=== PATIENT | female | born 1950 | race Caucasian/White ===

== ENCOUNTER → 2016-08-08 | Outpatient (CLI) | payer BC ==
[~2016-08-08] MED LIST: AMB10 PO; ASPI-391 PO; ATV5 PO; B-CO1TAB29 PO; DVN160125 PO; EFF50 PO; FLUO20CA35 PO; LORA-741 PO; PRLSR20 PO; VALS160T58 PO; ZOLP10TA6 PO; [UNRECOGNIZED DRUG - REMARK] PO
[2016-08-08 12:27] LABS: ALT/SGPT 31 U/L (12-78); AST/SGOT 19 U/L (15-37); BLOOD UREA NITROGEN 10 mg/dl (7-18); BUN/CREATININE RATIO 15.2 (10-20); CARBON DIOXIDE 29 mmol/L (21-32); CHLORIDE 102 mmol/L (98-107); CHOLESTEROL 185 mg/dl (0-200); CREATININE 0.67 mg/dl (0.60-1.20); GLUCOSE 128 mg/dl (70-99); POTASSIUM 3.5 mmol/L (3.5-5.1); SODIUM 141 mmol/L (136-145); TRIGLYCERIDES 169 mg/dl (0-150); VERY LOW DENSITY LIPOPROT CALC 34 mg/dl
[2016-08-08 12:29] LABS: ALB/GLOB RATIO 0.9 (0.9-2); ALKALINE PHOSPHATASE 63 U/L (45-117); CHOLESTEROL/HDL RATIO 3.6; ESTIMATED AVERAGE GLUCOSE 151 mg/dl; HA1C FLAG Normal (Normal); HDL CHOLESTEROL 52 mg/dl; LDL CHOLESTEROL CALCULATED 99 mg/dl
[2016-08-08 12:36] LABS: CALCIUM 9.4 mg/dl (8.5-10.1)
== END | disposition home or self-care (01) ==
LOC: C.LABBFT 07:59
PROVIDERS: ATTEND Physician Assistant Medical
DX: E11.9 Type 2 diabetes mellitus without complications (principal)

== ENCOUNTER → 2016-09-09 | Day surgery (SDC) | payer BC ==
[2016-08-30 07:32] VITALS: Ht 162.6 cm; Wt 86.4 kg
[~2016-09-09] VITALS: Ht 162.6 cm; Wt 86.4 kg
[~2016-09-09] MED LIST changes: +500ML BSSPLUS 0.5ML EPI1:1000 IRRIG ONE; +ACETAMINOPHEN 325 MG TAB PO PRN; +ATROPINE SULFATE 0.1 MG/ML 5ML SYR IV PRN; +ATROPINE SULFATE 1% OP OINT PER APPLICATION CHARGE ONE; +BSS FLUSH ONE; +BUPIVACAINE HCL 0.75% 10 ML AMP/VIAL ONE; +CEFAZOLIN SOD 1 GM VIAL ONE; +DEXAMETHASONE SOD INJ 4 MG/ML VIAL ONE; +ERYTHROMYCIN OP OINT 5 MG/GM 3.5 GM TUBE ONE; +EpHEDrine SULFATE INJ 50 MG/ML AMP IV PRN; +EpINEphrine INJ 1MG/ML AMP 1 MG/ML AMP ONE; +HYALURONIDASE HUMAN 150 UNIT/ML INJ ONE; +INDOCYANINE GREEN 25 MG/10 ML ONE; +LACTATED RINGER'S 1000ML 500 ML IV SCH; +LIDOCAINE HCL 2% 2 ML VIAL (20MG/ML) ONE; +LIDOCAINE MPF 4% INJ INJ ONE; +MIDAZOLAM HCL 1 MG/ML 2ML VIAL ONE; +NEOMYCIN/POLYMYX/DEXAMETH OP OINT PER APP CHARGE ONE; +OCUCOAT 1 ML SOLN IO ONE; +POVIDONE-IODINE OP SOLN (SURGERY CNTR CHARGING ONLY) ONE; +PROPARACAINE 0.5% OP SOLN PER DROP CHARGE OPL SCH; +PROPOFOL IV EMULSION 10 MG/ML 20 ML VIAL IV ONE; +TIMOLOL MALEATE 0.5% OP SOLN PER DROP CHARGE ONE; +TRIAMCINOLONE ACETONIDE OPHTH 40 MG/ML VIAL STERILE IO ONE
[2016-09-09] MEDS: PHENYLEPHRINE HCL 2.5% OP SOLN PER DROP CHARGE OPL SCH ×2 (07:33→07:38)
[2016-09-09] MEDS: TROPICAMIDE 1% OP SOLN PER DROP CHARGE OPL SCH ×2 (07:34→07:39)
--- NOTE | 2016-09-09 08:28 | History & Physical Bridge - [place] ---
H&P Re-Evaluation Bridge Note: Pt has a macular hole in the left eye and is here for vitrectomy left eye. I have examined the patient, reviewed the History & Physical and in the interval since the performance of the History & Physical I have noted the following changes of clinical significance: No changes noted
--- NOTE | 2016-09-09 09:52 | [facility] Operative Report ---
Operative Report Date of Service Sep 09, 2016. Operative Report PREOPERATIVE DIAGNOSIS: Macular hole, left eye. ICD10 CODE: H35.342 POSTOPERATIVE DIAGNOSIS: same and small retinal defect. PROCEDURE: 1. Pars plana vitrectomy, 23 gauge. 2. Membrane peeling of the internal limiting membrane. 3. Endolaser. 4. Fluid-air exchange. 5. Air-gas exchange w/ SF6 20%. All to the left eye. CPT CODE: 07880 SURGEON: Mervin Verdugo D.O. COMPLICATIONS: None. ESTIMATED BLOOD LOSS: None. SPECIMENS: None. ANESTHESIA: Retrobulbar block and MAC. INDICATIONS FOR PROCEDURE: The patient has a macular hole that is visually significant. Vitrectomy surgery is indicated to decrease risk of vision loss and potentially improve vision. CONSENT: The risks, benefits and alternatives were discussed with the patient including but not limited to decreased visual acuity, failure to achieve desired results, loss of the eye, infection, pain, glaucoma, lens changes, retinal tears, retinal detachment, the need for more procedures, drooping of the eyelid, blindness, and double vision. The patient is aware of risks and consents to the surgery. Consent is signed and on the chart. OPERATION AND FINDINGS: The patient was brought to the operating room where the patient was identified by name, date, and medical record number. The surgical site was confirmed with the informed written consent. The patient was sedated by the anesthesiology team after which a 50:50 mixture of 4% lidocaine and 0.75% bupivacaine with hyaluronidase was administered in a standard retrobulbar fashion. A total of 4 ml was administered without difficulty. The patient was then prepped and draped in the usual sterile manner for retinal surgery. A wire lid speculum was placed and an John 23-gauge trocar cannula system was employed. The inferior temporal trocar cannula was first placed in an angled fashion 3.75mm posterior to the surgical limbus and the infusion cannula was inserted into this cannula after which the intravitreal position was verified prior to turning the infusion on. Two more trocar cannulas were then inserted in an angled fashion, one in the superior temporal, and one in the superior nasal quadrant both 3.75mm posterior to the surgical limbus. A light pipe and vitrector were then introduced into the eye and the BIOM wide angle viewing system was brought into place. Standard core vitrectomy was performed and the vitreous was insured to be totally detached from the posterior pole with the aid of the vitrector. Next 0.05ml of indocyanine green was placed over the macular surface to stain the internal limiting membrane. This was washed from the eye after 10 seconds. At this point a flat contact lens was placed on the surface of the eye and a flex scraper and ILM forceps were then used to gently peel the internal limiting membrane surrounding the macular hole without difficulty. At this point scleral depression was performed for 360 degrees and a small retinal defect in the midperiphery at the 1 o'clock meridian was noted as well as two small retinal hemorrhages inferior midperiphery with no definite retinal tears. All these locations were treated with endolaser. No other retinal tears and no retinal detachments were noted. A soft tip cannula was used to perform a fluid-air exchange. Next, SF6 20% was injected in through the infusion cannula for a complete gas fill of the eye. The trocar cannulas were then removed and found to be air tight. The intraocular pressure was found to be within normal limits by palpation and subconjunctival injections of Kefzol and dexamethasone were administered inferiorly and superiorly. The wire lid speculum was removed. Erythromycin and atropine and timolol were applied to the surface of the eye. A light patch and shield were taped over the surface of the eye and the patient left the Operating Room in stable condition having tolerated the procedure well. DISPOSITION: A gas bracelet was placed on the patients wrist. The patient was instructed to maintain a face down position overnight. The patient is to call immediately if there are any problems overnight. I attest to the content of the Intraoperative Record and any orders documented therein. Any exceptions are noted below.
--- NOTE | 2016-09-09 09:54 | Discharge Instructions-SurgCtr ---
Discharge Instructions Date of Service Sep 09, 2016. Visit Reason for Visit: Left Eye Macular Hole Discharge Discharge Diagnosis / Problem: same Discharge Goals Goal(s): Improve function Activity Recommendations Activity Limitations: per Instructions/Follow-up section Anesthesia . Post Anesthesia Instructions: If you have had General Anesthesia or IV Sedation: * Do not drive today. * Resume driving when surgeon permits. * Do not make important decisions or sign legal documents today. * Call surgeon for: 1. Temperature elevations greater than 101 degrees F. 2. Uncontrollable pain. 3. Excessive bleeding. 4. Persistent nausea and vomiting. 5. Medication intolerance (nausea, vomiting or rash). * For nausea and vomiting use only clear liquids such as: tea, soda, bouillon until nausea subsides, then gradually increase diet as tolerated. * If you have any concerns or questions, call your surgeon's office. If physician is unavailable and it is an emergency, call 911 or go to the nearest emergency room. . Instructions / Follow-Up Instructions / Follow-Up * May take Tylenol if needed for discomfort. * Do NOT lay flat on back and position head as follows: face foward with chin down during daytime. sleep right side down or on stomach with head toward left. * Do NOT remove green bracelet until instructed to do so by your surgeon and follow these precautions: * No air travel * No travel above 2500 feet * No nitrous oxide (N2O). * Do NOT remove eye shield. * NO straining, heavy lifting (>15 pounds) or bending below waist. * Avoid getting water or soap directly into operative eye. * Do NOT rub eye. If you experience increasing eye pain not relieved by medication, please contact us immediately at [phone]. If you are unable to reach someone at the above number, call [phone] and ask to speak with the EYE DOCTOR TITLE I INSTRUCTIONAL ASSISTANT. Inform them that you are a Dr. Verdugo patient who had recent surgery. Diet Recommendations Home Diet: resume previous diet Procedures Procedures Performed: Left Eye 23 Gauge Vitrectomy, Endolaser, Membrane Peeling, SF6 Gas Insertion Pending Studies Studies pending at discharge: no Medical Emergencies . Who to Call and When: Medical Emergencies: If at any time you feel your situation is an emergency, please call 911 immediately. . Non-Emergent Contact Non-Emergency issues call your: Mop Handle Assembler . . "Provider Documentation" section prepared by Mervin Verdugo. .
[2016-09-09 09:56] VITALS: TEMP 36.4
--- NOTE | 2016-09-09 10:11 | Anesthesia Progress Nt - [facility] ---
Anesthesia Post Op Note Date & Time Sep 09, 2016 at 10:11 Vital Signs Pain Intensity: 0 Vital Signs Past 12 Hours Date Time Temp Pulse Resp B/P (MAP) Pulse Ox O2 Delivery O2 Flow Rate FiO2 09/09/16 09:56 36.4 75 18 154/83 (106) 98 Room Air 09/09/16 07:24 36.7 87 16 147/96 (113) 95 Room Air Notes Mental Status: alert / awake / arousable, participated in evaluation Pt Amnestic to Procedure: Yes Nausea / Vomiting: adequately controlled Pain: adequately controlled Airway Patency, RR, SpO2: stable & adequate BP & HR: stable & adequate Hydration State: stable & adequate Anesthetic Complications: no major complications apparent
[2016-09-09 10:23] VITALS: BP 156/86; PULSE 67; O2SAT 96
== END | disposition home or self-care (01) ==
LOC: X.SURG 07:04
PROVIDERS: ATTEND Ophthalmology
DX: H35.342 Macular cyst, hole, or pseudohole, left eye (principal); G47.33 Obstructive sleep apnea (adult) (pediatric); I10 Essential (primary) hypertension; F41.9 Anxiety disorder, unspecified; F32.9 Major depressive disorder, single episode, unspecified; E66.9 Obesity, unspecified; Z68.32 Body mass index [BMI] 32.0-32.9, adult; Z98.890 Other specified postprocedural states; Z82.3 Family history of stroke; Z83.3 Family history of diabetes mellitus

== ENCOUNTER → 2016-12-25 | Day surgery (SDC) | payer BC ==
[2016-12-09 13:15] VITALS: Ht 162.6 cm; Wt 86.4 kg
[~2016-12-25] VITALS: Ht 162.6 cm; Wt 86.4 kg
[~2016-12-25] MED LIST changes: +500ML BSS 0.3ML EPI 1:1000PF IRRIG ONE; -500ML BSSPLUS 0.5ML EPI1:1000 IRRIG ONE; -AMB10 PO; +AMVISC PLUS 0.8ML SYRINGE INT OCU ONE; -ATROPINE SULFATE 1% OP OINT PER APPLICATION CHARGE ONE; -ATV5 PO; +AcetaZOLAMIDE 250 MG TAB PO SCH; +BETAXOLOL HCL 0.25% OP SUSP PER DROP CHARGE OPL SCH; +BRIMONIDINE TART 0.2% OP SOLN PER DROP CHARGE ONE; -BUPIVACAINE HCL 0.75% 10 ML AMP/VIAL ONE; -CEFAZOLIN SOD 1 GM VIAL ONE; -DEXAMETHASONE SOD INJ 4 MG/ML VIAL ONE; -DVN160125 PO; -EFF50 PO; +ENDOCOAT 0.85ML SYRINGE INT OCU ONE; -ERYTHROMYCIN OP OINT 5 MG/GM 3.5 GM TUBE ONE; -HYALURONIDASE HUMAN 150 UNIT/ML INJ ONE; -INDOCYANINE GREEN 25 MG/10 ML ONE; +LIDOCAINE 4% OP SOLN DROP CHARGE ONE; +LIDOCAINE 4% OP SOLN DROP CHARGE OPL SCH; +LIDOCAINE HCL 1% MPF 2 ML VIAL ONE; -LIDOCAINE HCL 2% 2 ML VIAL (20MG/ML) ONE; -LIDOCAINE MPF 4% INJ INJ ONE; +MIX: 4ML BSS 1ML EPI 1:1000 PF INSTIL ONE; +MOXIFLOXACIN OPH SOLN PER DROP CHARGE ONE; -NEOMYCIN/POLYMYX/DEXAMETH OP OINT PER APP CHARGE ONE; -POVIDONE-IODINE OP SOLN (SURGERY CNTR CHARGING ONLY) ONE; +POVIDONE-IODINE OP SOLN 30 ML BTL ONE; -PROPOFOL IV EMULSION 10 MG/ML 20 ML VIAL IV ONE; -TIMOLOL MALEATE 0.5% OP SOLN PER DROP CHARGE ONE; +TOBRAMYCIN/DEXAMETHASONE OPH OINT PER APPLN CHARGE ONE; -TRIAMCINOLONE ACETONIDE OPHTH 40 MG/ML VIAL STERILE IO ONE
[2016-12-25] MEDS: PHENYLEPHRINE HCL 2.5% OP SOLN PER DROP CHARGE OPL SCH ×2 (10:28→10:33)
[2016-12-25] MEDS: TROPICAMIDE 1% OP SOLN PER DROP CHARGE OPL SCH ×2 (10:29→10:34)
[2016-12-25] MEDS: CYCLOPENTOLATE HCL 1% OP SOLN PER DROP CHARGE OPL SCH ×2 (10:30→10:35)
[2016-12-25] MEDS: MOXIFLOXACIN OPH SOLN PER DROP CHARGE OPL SCH ×2 (10:31→10:36)
--- NOTE | 2016-12-25 11:04 | History & Physical Bridge - [place] ---
H&P Re-Evaluation Bridge Note: I have examined the patient, reviewed the History & Physical and in the interval since the performance of the History & Physical I have noted the following changes of clinical significance: No changes noted
--- NOTE | 2016-12-25 11:48 | Discharge Instructions-SurgCtr ---
Discharge Instructions Date of Service Dec 25, 2016. Visit Reason for Visit: Cataract Left Eye Discharge Discharge Diagnosis / Problem: lens implant left eye Discharge Goals Goal(s): Improve function Activity Recommendations Activity Limitations: resume your previous activity Lifting Limitations: no more than 10 pounds Exercise/Sports Limitations: gradually increase as tolerated May Resume Sexual Activity: when tolerated Shower/Bathe: tomorrow Driving or Machine Use: resume 1 day after discharge Anesthesia . Post Anesthesia Instructions: If you have had General Anesthesia or IV Sedation: * Do not drive today. * Resume driving when surgeon permits. * Do not make important decisions or sign legal documents today. * Call surgeon for: 1. Temperature elevations greater than 101 degrees F. 2. Uncontrollable pain. 3. Excessive bleeding. 4. Persistent nausea and vomiting. 5. Medication intolerance (nausea, vomiting or rash). * For nausea and vomiting use only clear liquids such as: tea, soda, bouillon until nausea subsides, then gradually increase diet as tolerated. * If you have any concerns or questions, call your surgeon's office. If physician is unavailable and it is an emergency, call 911 or go to the nearest emergency room. . Instructions / Follow-Up Instructions / Follow-Up ACTIVITY RECOMMENDATIONS: * Light activities. * Mild irritation and blurred vision are common for the first few days. * You may walk outside, read, watch television. * Redness around the white part of the eye is common. MEDICATIONS: Resume previous medications unless instructed otherwise by your surgeon. * Take white Diamox (Acetazolamide) tablet at 2 pm today. Start all eye drops at 2 pm today: * Eye drops (today and tomorrow): Prednisone - one drop in operative eye every 3 hours while awake Ofloxacin - one drop in operative eye every 3 hours while awake SPECIAL CARE INSTRUCTIONS: * Tape plastic shield over eye to sleep at night. Call your doctor at with any concerns or problems. FOLLOW UP VISIT: Follow-up with Dr Tsang at [place] office as scheduled. Diet Recommendations Home Diet: no limitations Procedures Procedures Performed: cataract extraction with lens implant Pending Studies Studies pending at discharge: no Medical Emergencies . Who to Call and When: Medical Emergencies: If at any time you feel your situation is an emergency, please call 911 immediately. . Non-Emergent Contact Non-Emergency issues call your: V/[employer] Landing Signal Officer Call Non-Emergent contact if: your pain is not controlled [phone] . . "Provider Documentation" section prepared by Suraj Tsang. .
--- NOTE | 2016-12-25 11:50 | [facility] Operative Report ---
Operative Report Date of Service Dec 25, 2016. Operative Report 1. PREOPERATIVE DIAGNOSIS: Senile nuclear cataract, left eye. 2. POSTOPERATIVE DIAGNOSIS: Senile nuclear cataract, left eye. 3. PROCEDURE: Phacoemulsification of left cataract with posterior chamber lens implant, type [employer], model MX60, power +23.0 diopters. ANESTHESIA: Local standby. SURGEON: Dr. Tsang. COMPLICATIONS: None. OPERATING TIME: 10 minutes. 4. OPERATION AND FINDINGS: DESCRIPTION OF PROCEDURE: The left pupil was dilated. The anesthetic was administered using a topical technique. The left eye was prepped and draped. A speculum was placed. A clear corneal incision was formed. The chamber was filled with Amvisc Plus and Endocoat. Epinephrine solution was used. A paracentesis was placed. A capsulorrhexis was performed. The nucleus was hydrodissected. The lens was removed with phacoemulsification. Time was 4.47 seconds. The aspiration unit was used to remove the cortex. The capsule was filled with Amvisc Plus. The lens implant was folded and placed into the capsule. The incision was hydrated. The Amvisc was aspirated. The wound was secure. The chamber was deep. The pupil was round. Brimonidine, TobraDex ointment and Vigamox solution were placed. The speculum was removed. The patient was returned to the Recovery Room in stable condition. I attest to the content of the Intraoperative Record and any orders documented therein. Any exceptions are noted below. The scribe's documentation has been prepared in my presence, under my direction and personally reviewed by me in its entirety. I confirm that the note above accurately reflects all work, treatment, procedures, and medical decision making performed by me. I personally scribed for Suraj Tsang M.D. ([email or web address]) on 12/25/16 at 11:50. Electronically submitted by Sindhu Ward ([email or web address]).
--- NOTE | 2016-12-25 12:03 | Anesthesia Progress Nt - [facility] ---
Anesthesia Post Op Note Date & Time Dec 25, 2016 at 12:03 Vital Signs Pain Intensity: 0 Vital Signs Past 12 Hours Date Time Temp Pulse Resp B/P (MAP) Pulse Ox O2 Delivery O2 Flow Rate FiO2 12/25/16 11:53 36.8 70 14 132/79 (96) 97 Room Air 12/25/16 10:20 36.6 84 18 146/85 (105) 95 Room Air Notes Mental Status: alert / awake / arousable, participated in evaluation Pt Amnestic to Procedure: Yes Nausea / Vomiting: adequately controlled Pain: adequately controlled Airway Patency, RR, SpO2: stable & adequate BP & HR: stable & adequate Hydration State: stable & adequate Anesthetic Complications: no major complications apparent
[2016-12-25 12:16] VITALS: BP 139/81; PULSE 74; O2SAT 95
== END | disposition home or self-care (01) ==
LOC: X.SURG 09:58
PROVIDERS: ATTEND Specialist
DX: H25.12 Age-related nuclear cataract, left eye (principal); I10 Essential (primary) hypertension; E66.9 Obesity, unspecified; G47.33 Obstructive sleep apnea (adult) (pediatric); Z98.890 Other specified postprocedural states; Z68.32 Body mass index [BMI] 32.0-32.9, adult

== ENCOUNTER → 2017-02-18 | Outpatient (CLI) | payer BC ==
[~2017-02-18] MED LIST changes: -500ML BSS 0.3ML EPI 1:1000PF IRRIG ONE; -ACETAMINOPHEN 325 MG TAB PO PRN; -AMVISC PLUS 0.8ML SYRINGE INT OCU ONE; -ATROPINE SULFATE 0.1 MG/ML 5ML SYR IV PRN; -AcetaZOLAMIDE 250 MG TAB PO SCH; -BETAXOLOL HCL 0.25% OP SUSP PER DROP CHARGE OPL SCH; -BRIMONIDINE TART 0.2% OP SOLN PER DROP CHARGE ONE; -BSS FLUSH ONE; -ENDOCOAT 0.85ML SYRINGE INT OCU ONE; -EpHEDrine SULFATE INJ 50 MG/ML AMP IV PRN; -EpINEphrine INJ 1MG/ML AMP 1 MG/ML AMP ONE; -LACTATED RINGER'S 1000ML 500 ML IV SCH; -LIDOCAINE 4% OP SOLN DROP CHARGE ONE; -LIDOCAINE 4% OP SOLN DROP CHARGE OPL SCH; -LIDOCAINE HCL 1% MPF 2 ML VIAL ONE; -MIDAZOLAM HCL 1 MG/ML 2ML VIAL ONE; -MIX: 4ML BSS 1ML EPI 1:1000 PF INSTIL ONE; -MOXIFLOXACIN OPH SOLN PER DROP CHARGE ONE; -OCUCOAT 1 ML SOLN IO ONE; -POVIDONE-IODINE OP SOLN 30 ML BTL ONE; -PROPARACAINE 0.5% OP SOLN PER DROP CHARGE OPL SCH; -TOBRAMYCIN/DEXAMETHASONE OPH OINT PER APPLN CHARGE ONE
[2017-02-18 12:18] LABS: HEMATOCRIT 40.3 % (37-47); MEAN CELL VOLUME 89.2 fL (80-100); MEAN CORPUSCULAR HEMOGLOBIN 28.3 pg (25-34); MEAN CORPUSCULAR HGB CONC 31.8 g/dl (32-36); MEAN PLATELET VOLUME 9.7 fL (7.4-10.4); PLATELET COUNT 287 K/uL (130-400); RED BLOOD COUNT 4.52 M/uL (4.2-5.4); WHITE BLOOD COUNT 8.93 K/uL (4.8-10.8)
[2017-02-18 12:29] LABS: ESTIMATED AVERAGE GLUCOSE 151 mg/dl; HA1C FLAG Normal (Normal)
[2017-02-18 12:36] LABS: ALT/SGPT 25 U/L (12-78); BLOOD UREA NITROGEN 18 mg/dl (7-18); BUN/CREATININE RATIO 24.2 (10-20); CALCIUM 9.2 mg/dl (8.5-10.1); CARBON DIOXIDE 26 mmol/L (21-32); CHLORIDE 100 mmol/L (98-107); CHOLESTEROL 162 mg/dl (0-200); CREATININE 0.75 mg/dl (0.60-1.20); GLUCOSE 136 mg/dl (70-99); POTASSIUM 3.7 mmol/L (3.5-5.1); SODIUM 136 mmol/L (136-145); TRIGLYCERIDES 121 mg/dl (0-150); VERY LOW DENSITY LIPOPROT CALC 24 mg/dl
[2017-02-18 12:41] LABS: RATIO 11.6 mcg/mg (0-30.0)
[2017-02-18 12:46] LABS: ALB/GLOB RATIO 0.9 (0.9-2); ALKALINE PHOSPHATASE 68 U/L (45-117); AST/SGOT 11 U/L (15-37); CHOLESTEROL/HDL RATIO 3.2; HDL CHOLESTEROL 50 mg/dl; LDL CHOLESTEROL CALCULATED 88 mg/dl
== END | disposition home or self-care (01) ==
LOC: C.LABBFT 07:27
PROVIDERS: ATTEND Internal Medicine
DX: E11.9 Type 2 diabetes mellitus without complications (principal)

== ENCOUNTER → 2017-02-28 | Outpatient (CLI) | payer BC ==
--- NOTE | 2017-02-28 15:33 | MAMMOGRAPHY REPORT ---
BILATERAL DIGITAL SCREENING MAMMOGRAM WITH CAD: 02/28/2017 CLINICAL HISTORY: Routine screening. TECHNIQUE: Current study was also evaluated with a Computer Aided Detection (CAD) system. Bilateral CC and MLO views were obtained. COMPARISON: Comparison is made to exams dated: 11/19/2013 mammogram, 09/21/2012 mammogram, 08/20/2011 m ammogram, 06/15/2010 mammogram, 06/14/2009 mammogram - [facility], and 09/16/2007. BREAST COMPOSITION: There are scattered areas of fibroglandular density in both breasts. FINDINGS: No suspicious masses, calcifications, or areas of architectural distortion are noted in ei ther breast. There has been no significant interval change compared to prior exams. Scattered bilater al benign-appearing calcifications are not significantly changed. IMPRESSION: ACR BI-RADS CATEGORY 2: BENIGN There is no mammographic evidence of malignancy. A 1 year screening mammogram is recommended. The pa tient will receive written notification of the results. Approximately 10% of breast cancers are not detected with mammography. A negative mammographic report should not delay biopsy if a clinically suggestive mass is present. Khloe Covington M.D. /:02/28/2017 07:28:42 Ship Boat Or Barge Mate: Zoya JONES(Rubi)(M), [facility] letter sent: Normal 1/2 BI-RADS Code: ACR BI-RADS Category 2: Benign
== END | disposition home or self-care (01) ==
LOC: C.MAMM 06:47
PROVIDERS: ATTEND Internal Medicine
DX: Z12.31 Encounter for screening mammogram for malignant neoplasm of breast (principal)

== ENCOUNTER 2023-02-01 07:08 | Inpatient (IN) ==
[2023-02-01 08:09] LABS: Basophils # (auto) 0.06 K/uL (0.00-0.20); Basophils % (auto) 0.5 %; Eosinophils # (auto) 0.22 K/uL (0.00-0.50); Eosinophils % (auto) 1.8 %; Hematocrit (blood only) 44.4 % (37.0-47.0); Hemoglobin 14.1 g/dl (12.0-16.0); Immature Granulocytes # (auto) 0.06 K/uL (0.01-0.20); Immature Granulocytes % (auto) 0.5 %; Lymphocytes # (auto) 2.89 K/uL (1.20-3.40); Lymphocytes % (auto) 23.4 %; Mean Corpuscular Hgb Conc 31.8 g/dL (32.0-36.0); Mean Corpuscular Volume 94.5 fL (80.0-100.0); Mean Platelet Volume 9.9 fL (9.4-12.4); Monocytes # (auto) 0.49 K/uL (0.11-0.59); Neutrophils # (auto) 8.63 K/uL (1.40-6.50); Neutrophils % (auto) 69.8 %; Platelet Count 355 K/uL (130-400); RDW Coefficient of Variation 14.4 % (11.5-14.5); RDW Standard Deviation 49.2 fL (36.4-46.3); White Blood Count 12.35 K/ul (4.8-10.8)
--- NOTE | 2023-02-01 08:13 | Emergency Department Note ---
History of Present Illness General Chief complaint: Flu Like Symptoms Stated complaint: SOB,COUGH,HARD TO BREATHE Time Seen by Provider: 02/01/23 07:18 History of Present Illness This 72-year-old female is seen today for evaluation of cough and shortness of breath that have been present for 2 days. She states 3 days ago she felt fine. She had some minor cold type symptoms including clear rhinorrhea, but did not think much of them. She had no shortness of breath at that time. She visited with her granddaughter over the break. She states her granddaughter was sick. The patient has had increasing shortness of breath in the last 48 hours. She denies any fevers, but has had sweats. She also has chills. No nausea, vomiting, or diarrhea. She denies any ear pain, headache, neck pain, or sinus congestion. She denies any UTI symptoms. She denies any history of CHF or COPD. However, she does state that she uses a BiPAP machine at night. She does have a history of hypertension. She did not take her medications this morning. Currently denies any chest pain. She does not smoke. She states her vaccinations are up-to-date, including COVID. She has had no treatment. Upon initial presentation, oxygen saturation was 88% on room air. Home Medications Medication Instructions Recorded Confirmed Type vitamin B complex (B 1 tab PO DAILY 10/07/18 02/01/23 History Complex-Vitamin B12 tablet) blood sugar diagnostic (Accu-Chek #100 ea 08/06/19 10/14/22 Rx Marleni Plus test strips) lancing device with lancets kit #100 ea 08/06/19 10/14/22 Rx (Accu-Chek Softclix Lancing Device+Lancets kit) desoximetasone 0.25 % topical 1 appln topical BID #60 grams 09/13/19 02/01/23 Rx ointment ferrous sulfate 325 mg (65 mg 325 mg PO DAILY 03/22/20 02/01/23 History iron) tablet (Feosol) multivitamin 1 tab PO DAILY 03/22/20 02/01/23 History ondansetron 4 mg disintegrating 4 mg PO Q6 PRN nausea and vomiting 05/26/21 02/01/23 Rx tablet #14 tabs venlafaxine 75 mg capsule,extended 75 mg PO DAILY #90 caps 04/02/22 02/01/23 Rx release 24 hr bupropion HCl 300 mg 24 hr tablet, 300 mg PO QAM 90 days #90 tabs 10/03/22 02/01/23 Rx extended release (Wellbutrin XL) metformin 500 mg tablet 500 mg PO TIDWMEAL #270 tabs 10/17/22 02/01/23 Rx zolpidem 10 mg tablet (Ambien) 10 mg PO QPM PRN insomnia #90 tabs 10/17/22 02/01/23 Rx mometasone 0.1 % topical cream 1 applic topical DAILY #45 grams 11/14/22 02/01/23 Rx potassium chloride 10 mEq 20 meq (2 x 10 mEq) PO DAILY #180 11/14/22 02/01/23 Rx tablet,extended release(part/cryst) tabs omeprazole 40 mg capsule,delayed 40 mg PO DAILY #90 caps 11/18/22 02/01/23 Rx release venlafaxine 150 mg 150 mg PO DAILY #90 caps 12/02/22 02/01/23 Rx capsule,extended release 24 hr benzonatate 100 mg capsule 100 mg PO TID PRN cough #30 caps 12/19/22 02/01/23 Rx sodium sul 1.479 gram-potas ch See Rx Instructions PO .COMPLEX 01/24/23 02/01/23 Rx 0.188 gram-magnes sul 0.225 gram #24 tabs tablet (Sutab) carvedilol 3.125 mg tablet 3.125 mg PO BIDM #60 tabs 02/04/23 Rx empagliflozin 10 mg tablet 10 mg PO DAILY #30 tabs 02/04/23 Rx (Jardiance) furosemide 40 mg tablet (Lasix) 40 mg PO DAILY #30 tabs 02/04/23 Rx sacubitril 24 mg-valsartan 26 mg 1 tab PO BID #60 tabs 02/04/23 Rx tablet (Entresto) Allergies Allergy/AdvReac Type Severity Reaction Status Date / Time latex Allergy Mild RASH Verified 02/03/23 11:17 dextromethorphan Allergy Unknown Unknown Verified 02/03/23 11:17 [From NyQuil] doxylamine [From NyQuil] Allergy Unknown Unknown Verified 02/03/23 11:17 pseudoephedrine [From NyQuil] Allergy Unknown Unknown Verified 02/03/23 11:17 bacitracin AdvReac Mild "change in Verified 02/03/23 11:17 skin color, itch" neomycin AdvReac Mild "change in Verified 02/03/23 11:17 skin color, itch" polymyxin B AdvReac Mild "change in Verified 02/03/23 11:17 skin color, itch" acetaminophen AdvReac Unknown COUGH/ANXIO Verified 02/03/23 11:17 US diphenhydramine AdvReac Unknown COUGH/ANXIO Verified 02/03/23 11:17 US ibuprofen AdvReac Unknown COUGH/ANXIO Verified 02/03/23 11:17 US naproxen AdvReac Unknown COUGH/ANXIO Verified 02/03/23 11:17 US crestor AdvReac myalgia Uncoded 12/29/22 18:22 Past Med/Surg History Medical History (Updated 02/04/23 @ 21:35 by Earl Morris PA-C) Community acquired pneumonia Type 2 diabetes mellitus Sleep apnea Insomnia Hypertension Esophageal reflux Hemorrhoids Eczema Atopic dermatitis Anxiety Surgical History S/P colonoscopy (03/06/11) Sigmoid diverticulosis, otherwise normal. Recheck 10 years Family History Father Asthma Diabetes Hepatic disorder Sister Carotid artery stenosis Diabetes Mother Stroke Diabetes Brother Diabetes Denies family history of Ovarian cancer Prostate cancer Myocardial infarction Breast cancer Colorectal cancer Social History Smoking Status: Never smoker Second Hand Exposure: No; Do You Dip or Chew Tobacco: No; Hx Alcohol Use: No Hx Substance Use: No Preferred Language: Estonian Communication Ability: Effective Visual Impairment: No Limitations Hearing Ability: Normal Project Analyst Required: No Beliefs That Will Affect Care: None marital status: Current Living Situation: Spouse current occupational status: employed current occupation: Homemaker Feels Safe at Home: Yes Diet: regular caffeine: Yes (Not often ) Dental Care, Regularly: Yes Seatbelt Use: always Sunscreen Use: No Assistive Devices: None Review of Systems A total of 10 systems reviewed and were otherwise negative Physical Exam Vital Signs Vital Signs - 24 hr 02/01/23 07:12 02/01/23 07:30 Temperature 36.8 C Temperature Source Temporal Artery Scan Pulse Rate 128 H Pulse Rate [Apical] 126 H Respiratory Rate 20 18 Respiratory Effort / Characteristics Non-Labored Labored Respiratory Depth Normal Respiratory Pattern Regular Blood Pressure 160/81 H Blood Pressure [Right Arm] 187/100 H Blood Pressure Mean 107 Blood Pressure Mean [Right Arm] 129 Pulse Oximetry 90 98 Oxygen Delivery Method Room Air Nasal Cannula Oxygen Flow Rate 3 Sepsis Recent Fever Within 48 Hours No Sepsis New/Unexplained Change in Mental Status No Sepsis Action Taken by Nursing No Action Required General: Well-developed, well-nourished, elderly female, in no acute distress. Obvious respiratory discomfort. Laying on the bed. Alert and oriented. Currently wearing oxygen tubing. Skin: Warm and moist with good turgor. No rashes. No ecchymosis or erythema. She is diaphoretic. No visible joint effusions. HEENT: Normocephalic, atraumatic. Eyes PERRLA, EOMI. Ears TMs intact bilaterally with good light reflexes. No erythema or bulging. Canals are patent. Nares patent bilaterally with clear nasal drainage. Oropharynx without erythema or exudate. No uvula midline. Oral mucosa moist. Fair dentition. Lymphatics are palpated without enlargement or tenderness for anterior and posterior chains. Heart: Heart tachycardic with a regular rhythm. No MGR. Peripheral pulses are 2+. Lungs: Tachypneic. Lungs have expiratory rhonchi present in both lower bautista. No crackles or wheezing. Fair air movement. The patient is able to take a deep breath. Abdomen: Abdomen was inspected, auscultated, and palpated. Obese. Bowel sounds present x 4. Soft, nontender to palpation. No hepato-splenomegaly. No masses noted. No rebound. No CVA tenderness. Musculoskeletal: Gross motor function of the upper and lower extremities is intact and unremarkable. Neurologic: Gross sensation is intact across the upper and lower extremities by soft touch. Course Administered Medications Discontinued Medications Bupropion HCl (Bupropion Xl 300 Mg Tabcr) 300 [facility] [place] Stop: 03/04/23 08:59 Last Admin: 02/04/23 08:48 Dose: 300 mg Documented By: Admin: 02/03/23 08:30 Dose: 300 mg Documented By: Admin: 02/02/23 08:40 Dose: 300 mg Documented By: NAYELI Carvedilol (Carvedilol 3.125 Mg Tab) 3.125 mg PO BIDM NATALIO Stop: 03/05/23 16:59 Last Admin: 02/04/23 08:48 Dose: 3.125 mg Documented By: Admin: 02/03/23 17:23 Dose: 3.125 mg Documented By: MADALYN Empagliflozin (Empagliflozin 10 Mg Tab) 10 mg PO DAILY NATALIO Stop: 03/05/23 16:29 Last Admin: 02/04/23 08:49 Dose: 10 mg Documented By: Admin: 02/03/23 17:23 Dose: 10 mg Documented By: MADALYN Fentanyl Citrate (Fentanyl Citrate Pf 100 Mcg/2 Ml Vial) Confirm Administered Dose 100 mcg .ROUTE .STK-MED ONE Stop: 02/03/23 11:19 Last Increment: 02/03/23 12:16 Dose: 50 mcg Documented By: AMI Ferrous Sulfate (Ferrous Sulfate 325 Mg Tab) 325 mg PO DAILY NATALIO Stop: 03/04/23 08:59 Last Admin: 02/04/23 08:49 Dose: 325 mg Documented By: Admin: 02/03/23 08:30 Dose: 325 mg Documented By: Admin: 02/02/23 08:40 Dose: 325 mg Documented By: NAYELI Furosemide (Furosemide Inj 20 Mg/2 Ml Vial) 20 mg IV ONE ONE Stop: 02/01/23 10:12 Last Admin: 02/01/23 10:23 Dose: 20 mg Documented By: ERIC Furosemide (Furosemide 40 Mg/4 Ml Vial) 40 mg IV BID17 NATALIO Stop: 03/03/23 16:59 Last Admin: 02/03/23 17:23 Dose: 40 mg Documented By: Admin: 02/03/23 08:29 Dose: 40 mg Documented By: Admin: 02/02/23 16:34 Dose: 40 mg Documented By: Admin: 02/02/23 08:40 Dose: 40 mg Documented By: Admin: 02/01/23 17:39 Dose: 40 mg Documented By: TAMMY Furosemide (Furosemide 40 Mg/4 Ml Vial) 40 mg IV Q12H NATALIO Stop: 03/06/23 08:59 Last Admin: 02/04/23 09:02 Dose: 40 mg Documented By: MADALYN Heparin Sodium (Porcine) (Heparin Sod 5,000 Unit/0.5 Ml Vial) 5,000 units SQ Q12 NATALIO Stop: 03/03/23 20:59 Last Admin: 02/04/23 08:49 Dose: 5,000 units Documented By: Admin: 02/03/23 21:11 Dose: 5,000 units Documented By: Admin: 02/03/23 13:40 Dose: 5,000 units Documented By: Admin: 02/02/23 21:12 Dose: 5,000 units Documented By: Admin: 02/02/23 08:34 Dose: 5,000 units Documented By: Admin: 02/01/23 20:55 Dose: 5,000 units Documented By: PALOMO Heparin Sodium (Porcine) (Heparin (Porcine) 1000 Unit/Ml 10 Ml (Maintainer Plant Use Only)) Confirm Administered Dose 10,000 units .ROUTE .STK-MED ONE Stop: 02/03/23 11:19 Last Admin: 02/03/23 12:15 Dose: 5,000 units Documented By: KIM Heparin Sodium/Sodium Chloride (Heparin In Nss Infusion 1000 Unit/500 Ml (2 U/Ml) Bag) Confirm Administered Dose 3,000 units IV .STK-MED ONE Stop: 02/03/23 11:19 Last Admin: 02/03/23 11:46 Dose: 3,000 units Documented By: KIM Famotidine 20 mg/ Syringe 5 mls @ 2.5 mls/min IV NOW STA Stop: 02/01/23 11:34 Last Admin: 02/01/23 14:46 Dose: 2.5 mls/min Documented By: TAMMY Famotidine 20 mg/ Syringe 5 mls @ 2.5 mls/min IV QAM NATALIO Stop: 03/04/23 08:59 Last Admin: 02/04/23 09:01 Dose: 2.5 mls/min Documented By: Admin: 02/03/23 08:34 Dose: 2.5 mls/min Documented By: Admin: 02/02/23 08:39 Dose: 2.5 mls/min Documented By: NAYELI Magnesium Sulfate/Dextrose (Magnesium Sulfate / D5w) 1 gm in 100 mls @ 50 mls/hr IV Q2H NATALIO Stop: 02/01/23 21:14 Last Infusion: 02/01/23 22:30 Dose: Infused Documented By: Admin: 02/01/23 20:20 Dose: 50 mls/hr Documented By: Infusion: 02/01/23 19:58 Dose: Infused Documented By: Admin: 02/01/23 17:58 Dose: 50 mls/hr Documented By: Infusion: 02/01/23 17:58 Dose: Infused Documented By: Admin: 02/01/23 16:16 Dose: 50 mls/hr Documented By: TAMMY Sodium Chloride (Nss) 250 mls @ 999 mls/hr IV .Q16M ONE Stop: 02/03/23 19:29 Last Infusion: 02/03/23 22:05 Dose: Infused Documented By: Admin: 02/03/23 21:45 Dose: 999 mls/hr Documented By: PALOMO Insulin Aspart (Insulin Aspart Per Unit Charge) 6 units SC NOW STA Stop: 02/01/23 11:24 Last Admin: 02/01/23 11:41 Dose: 6 units Documented By: TARI Co-signed By: VIRGILIO Insulin Aspart (Insulin Aspart Per Unit Charge) 0 units SC ACHS NATALIO; Protocol Stop: 03/03/23 13:14 Last Admin: 02/04/23 12:46 Dose: 4 units Documented By: MADALYN Co-signed By: YOLANDA Admin: 02/04/23 08:45 Dose: 6 units Documented By: MADALYN Co-signed By: JAMES Admin: 02/03/23 21:12 Dose: Not Given Documented By: Admin: 02/03/23 17:29 Dose: 9 units Documented By: MADALYN Co-signed By: TEOFILO Admin: 02/03/23 13:44 Dose: 7 units Documented By: MADALYN Co-signed By: TEOFILO Admin: 02/03/23 08:25 Dose: 1 units Documented By: MADALYN Co-signed By: VALERIE Admin: 02/02/23 21:15 Dose: Not Given Documented By: Admin: 02/02/23 17:23 Dose: 5 units Documented By: NAYELI Co-signed By: JAMES Admin: 02/02/23 12:25 Dose: 9 units Documented By: NAYELI Co-signed By: JAMES Admin: 02/02/23 08:33 Dose: 6 units Documented By: NAYELI Co-signed By: EMILY Admin: 02/01/23 20:54 Dose: Not Given Documented By: Admin: 02/01/23 17:38 Dose: Not Given Documented By: Admin: 02/01/23 14:55 Dose: 5 units Documented By: TAMMY Co-signed By: JAMES Insulin Glargine (Lantus Per Unit Charge) 20 units SQ ONE ONE; Protocol Stop: 02/01/23 13:46 Last Admin: 02/01/23 14:56 Dose: 20 units Documented By: TAMMY Co-signed By: JAMES Insulin Glargine (Lantus Per Unit Charge) 15 units SQ DAILY NATALIO; Protocol Stop: 03/04/23 08:59 Last Admin: 02/02/23 08:34 Dose: 15 units Documented By: NAYELI Co-signed By: EMILY Insulin Glargine (Lantus Per Unit Charge) 7 units SQ DAILY NATALIO; Protocol Stop: 03/05/23 08:59 Last Admin: 02/03/23 08:26 Dose: 7 units Documented By: MADALYN Co-signed By: VALERIE Insulin Glargine (Lantus Per Unit Charge) 17 units SQ DAILY NATALIO; Protocol Stop: 03/06/23 08:59 Last Admin: 02/04/23 08:45 Dose: 17 units Documented By: MADALYN Co-signed By: JAMES Insulin Glargine (Lantus Per Unit Charge) 10 units SQ QDD NATALIO; Protocol Stop: 02/03/23 16:31 Last Admin: 02/03/23 17:29 Dose: 10 units Documented By: MADALYN Co-signed By: TEOFILO Ioversol (Optiray 320 125ml) 115 ml IV ONCE ONE Stop: 02/01/23 09:22 Last Admin: 02/01/23 09:22 Dose: 115 ml Documented By: SUBHA Ioversol (Optiray 350) Confirm Administered Dose 1 ml .ROUTE .STK-MED ONE Stop: 02/03/23 11:49 Last Admin: 02/03/23 12:14 Dose: 25 ml Documented By: KIM Losartan Potassium (Losartan Potassium 50 Mg Tab) 100 mg PO NOW STA Stop: 02/01/23 11:35 Last Admin: 02/01/23 14:47 Dose: 100 mg Documented By: TAMMY Losartan Potassium (Losartan Potassium 50 Mg Tab) 100 mg PO DAILY NATALIO Stop: 03/04/23 08:59 Last Admin: 02/03/23 08:30 Dose: 100 mg Documented By: Admin: 02/02/23 08:39 Dose: 100 mg Documented By: NAYELI Midazolam HCl (Midazolam Hcl 1 Mg/Ml 2ml Vial) Confirm Administered Dose 2 mg .ROUTE .STK-MED ONE Stop: 02/03/23 11:19 Last Admin: 02/03/23 12:15 Dose: 2 mg Documented By: AMI Mometasone Furoate (Mometasone Furoate 0.1% Cr 15 Gm Tube) 1 appln EXT DAILY NATALIO Stop: 03/04/23 08:59 Last Admin: 02/04/23 08:51 Dose: 1 appln Documented By: Admin: 02/03/23 08:32 Dose: 1 appln Documented By: Admin: 02/02/23 08:37 Dose: 1 appln Documented By: NAYELI Nicardipine HCl (Nicardipine Hcl Inj 2.5 Mg/Ml 10 Ml Amp) Confirm Administered Dose 25 mg .ROUTE .STK-MED ONE Stop: 02/03/23 11:19 Last Admin: 02/03/23 11:46 Dose: 25 mg Documented By: KIM Nitroglycerin (Nitroglycerin 2% Ointment 30gm Tube) Confirm Administered Dose 18 inch EXT .STK-MED ONE Stop: 02/01/23 10:00 Last Admin: 02/01/23 10:01 Dose: 1 inch Documented By: ML Nitroglycerin/Dextrose (Nitroglycerin/D5w 100mcg/Ml 20ml Syr) Confirm Administered Dose 2,000 mcg .ROUTE .STK-MED ONE Stop: 02/03/23 11:19 Last Admin: 02/03/23 11:47 Dose: 2,000 mcg Documented By: KIM Pantoprazole Sodium (Pantoprazole 40 Mg Tab) 40 mg PO DAILY NATALIO Stop: 03/04/23 08:59 Last Admin: 02/04/23 08:50 Dose: 40 mg Documented By: Admin: 02/03/23 08:31 Dose: 40 mg Documented By: Admin: 02/02/23 08:39 Dose: 40 mg Documented By: NAYELI Potassium Chloride (Potassium Chloride Crtab 20 Meq Tabcr) 20 meq PO NOW STA Stop: 02/01/23 11:35 Last Admin: 02/01/23 14:48 Dose: 20 meq Documented By: TAMMY Potassium Chloride (Potassium Chloride Crtab 20 Meq Tabcr) 20 meq PO BID NATALIO Stop: 03/03/23 20:59 Last Admin: 02/04/23 08:51 Dose: 20 meq Documented By: Admin: 02/03/23 21:13 Dose: 20 meq Documented By: Admin: 02/03/23 13:39 Dose: 20 meq Documented By: Admin: 02/02/23 21:09 Dose: 20 meq Documented By: Admin: 02/02/23 08:40 Dose: 20 meq Documented By: Admin: 02/01/23 20:55 Dose: 20 meq Documented By: PALOMO Sacubitril/Valsartan (Valsartan/Sacubitril 26/24mg Tab) 1 tab PO BID NATALIO Stop: 03/05/23 20:59 Last Admin: 02/04/23 08:51 Dose: 1 tab Documented By: Admin: 02/03/23 21:13 Dose: 1 tab Documented By: PALOMO Venlafaxine HCl (Venlafaxine Hcl Xr 150 Mg Capxr) 150 mg PO NOW STA Stop: 02/01/23 11:35 Last Admin: 02/01/23 14:49 Dose: 150 mg Documented By: TAMMY Venlafaxine HCl (Venlafaxine Hcl Xr 75 Mg Capxr) 75 mg PO NOW STA Stop: 02/01/23 11:35 Last Admin: 02/01/23 14:49 Dose: 75 mg Documented By: TAMMY Venlafaxine HCl (Venlafaxine Hcl Xr 150 Mg Capxr) 150 mg PO DAILY NATALIO Stop: 03/04/23 08:59 Last Admin: 02/04/23 08:50 Dose: 150 mg Documented By: Admin: 02/03/23 08:31 Dose: 150 mg Documented By: Admin: 02/02/23 08:40 Dose: 150 mg Documented By: NAYELI Venlafaxine HCl (Venlafaxine Hcl Xr 75 Mg Capxr) 75 mg PO DAILY NATALIO Stop: 03/04/23 08:59 Last Admin: 02/04/23 08:52 Dose: 75 mg Documented By: Admin: 02/03/23 08:31 Dose: 75 mg Documented By: Admin: 02/02/23 08:40 Dose: 75 mg Documented By: NAYELI Zolpidem Tartrate (Zolpidem Tartrate 10 Mg Tab) 10 mg PO HS PRN PRN Reason: insomnia Stop: 03/03/23 20:50 Last Admin: 02/04/23 01:00 Dose: 10 mg Documented By: Admin: 02/02/23 21:11 Dose: 10 mg Documented By: Admin: 02/01/23 21:23 Dose: 10 mg Documented By: PALOMO Critical Care Time Critical Care Time: Yes Total Critical Care Time: 35 I have personally spent greater than 35 minutes of critical care time in the direct management of this patient. This includes bedside care, interpretation of diagnostic studies and testing, discussion with consultants, patient, and family members, and other required patient management activities. This 35 minutes is in excess of all separately billable procedures. Medical Decision Making Differential Diagnosis Pneumonia, PE, COPD exacerbation, CHF, asthma exacerbation, pneumonitis, pneumothorax Medical Records Attestation: I reviewed the patient's medical records. Home Medications Current Medication List: was personally reviewed by me Additional Comments: She had an previous echocardiogram performed and showed an ejection fraction of 50 to 55% and mild mitral regurgitation. Laboratory Data CBC obtained today shows a mild elevation white count of 12.35. Normal H&H at 14.1 and 44.4. Normal platelets at 355,000. INR is normal at 1.0. Chemistry panel obtained today is unremarkable. Sodium 134, potassium 4.3, chloride 101, CO2 22, and BUN 15, creatinine 0.71. Glucose 380. LFTs are unremarkable. Troponin is elevated at 25.0. BNP is also elevated at 729. Procalcitonin is normal at less than 0.05. BioFire nasal swab was obtained. It is entirely unremarkable. Repeat troponin is elevated at 25.9. Repeat glucose is elevated at 391. Urine obtained today is dark yellow with trace protein, 3+ glucose, trace ketones, no nitrates, no leukocyte esterase, and no bacteria. ABG study was ordered later in the visit. It shows a pH of 7.34. PO2 is low at 77. PCO2 is normal at 40. Bicarb normal at 22. Base excess is -3.9. Blood cultures x2 were obtained. 02/04/23 05:25 02/04/23 05:25 Lab Results 02/01/23 02/01/23 02/01/23 Range/Units 07:34 07:47 07:50 WBC 12.35 H (4.8-10.8) K/ul RBC 4.70 (4.20-5.40) M/uL Hgb 14.1 (12.0-16.0) g/dl Hct 44.4 (37.0-47.0) % MCV 94.5 (80.0-100.0) fL MCH 30.0 (25.0-34.0) pg MCHC 31.8 L (32.0-36.0) g/dL RDW Std Deviation 49.2 H (36.4-46.3) fL RDW Coeff of Lashae 14.4 (11.5-14.5) % Plt Count 355 (130-400) K/uL MPV 9.9 (9.4-12.4) fL Immature Gran % (Auto) 0.5 % Neut % (Auto) 69.8 % Lymph % (Auto) 23.4 % Lamb % (Auto) 4.0 % Eos % (Auto) 1.8 % Baso % (Auto) 0.5 % Neut # (Auto) 8.63 H (1.40-6.50) K/uL Lymph # (Auto) 2.89 (1.20-3.40) K/uL Lamb # (Auto) 0.49 (0.11-0.59) K/uL Eos # (Auto) 0.22 (0.00-0.50) K/uL Baso # (Auto) 0.06 (0.00-0.20) K/uL Immature Gran # (Auto) 0.06 (0.01-0.20) K/uL PT 10.9 (9.0-12.0) Seconds INR 1.0 (0.9-1.1) ABG pH (7.35-7.45) ABG pCO2 (35-46) mmHg ABG pO2 (80-95) mmHg ABG HCO3 (19-24) mmol/L ABG O2 Saturation (90-95) % ABG Base Excess (-9-1.8) mEq/L Gentry Test (Pos) Oxygen Given Sodium 134 L (136-145) mmol/L Potassium 4.3 (3.5-5.1) mmol/L Chloride 101 (98-107) mmol/L Carbon Dioxide 22 (21-32) mmol/L Anion Gap 11 (3-11) BUN 15 (6-23) mg/dl Creatinine 0.71 (0.6-1.2) mg/dl Est Cr Clr Drug Dosing Not Reportable Est GFR ( Amer) 97.9 ml/min Est GFR (Non-Af Amer) 84.5 ml/min BUN/Creatinine Ratio 21.1 H (10-20) Glucose 380 H* (70-99(Fasting)) mg/dl POC Glucose (70-99) mg/dl Calcium 9.5 (8.6-10.3) mg/dl Magnesium 1.6 L (1.7-2.4) mg/dl Total Bilirubin 0.7 (0.2-1.0) mg/dl AST 17 (13-39) U/L ALT 17 (7-52) U/L Alkaline Phosphatase 57 (34-104) U/L Troponin I High Sens 25.0 H (0-14) pg/ml B-Natriuretic Peptide 729 H (0-100) pg/ml Total Protein 7.8 (6.0-8.3) gm/dl Albumin 4.3 (3.4-5.0) gm/dl Globulin 3.5 (2.5-4.0) gm/dl Albumin/Globulin Ratio 1.2 (0.9-2) Procalcitonin < 0.05 (0-0.5) ng/ml Urine Color Urine Appearance (Clear) Urine pH (4.5-7.5) Ur Specific Ensign (1.000-1.030) Urine Protein (Negative) Urine Glucose (UA) (Negative) Urine Ketones (Negative) Urine Blood (Negative) Urine Nitrite (Negative) Urine Bilirubin (Negative) Urine Urobilinogen (Negative) Ur Leukocyte Esterase (Negative) Urine WBC (Auto) (0-5) /hpf Urine RBC (Auto) (0-4) /hpf U Hyaline Cast (Auto) (0-5) /lpf U Epithel Cells (Auto) (0-5) /lpf Urine Bacteria (Auto) (Negative) Adenovirus (PCR) Not Detected (NotDetected) B. pertussis DNA (PCR) Not Detected (NotDetected) B.parapertussis DNA PCR Not Detected (NotDetected) C. pneumoniae DNA (PCR) Not Detected (NotDetected) Coronavirus OC43 (PCR) Not Detected (NotDetected) Coronavirus HKU1 (PCR) Not Detected (NotDetected) Coronavirus 229E (PCR) Not Detected (NotDetected) SARS-CoV-2 (PCR) Not Detected (NotDetected) Coronavirus NL63 (PCR) Not Detected (NotDetected) Human Metapneumovir PCR Not Detected (NotDetected) Influenza Type A (PCR) Not Detected (NotDetected) Influenza Type B (PCR) Not Detected (NotDetected) M. pneumoniae (PCR) Not Detected (NotDetected) Parainfluenza 1 (PCR) Not Detected (NotDetected) Parainfluenza 2 (PCR) Not Detected (NotDetected) Parainfluenza 3 (PCR) Not Detected (NotDetected) Parainfluenza 4 (PCR) Not Detected (NotDetected) RSV (PCR) Not Detected (NotDetected) Entero/Rhino (PCR) Not Detected (NotDetected) 02/01/23 02/01/23 02/01/23 Range/Units 09:36 10:25 10:50 WBC (4.8-10.8) K/ul RBC (4.20-5.40) M/uL Hgb (12.0-16.0) g/dl Hct (37.0-47.0) % MCV (80.0-100.0) fL MCH (25.0-34.0) pg MCHC (32.0-36.0) g/dL RDW Std Deviation (36.4-46.3) fL RDW Coeff of Lashae (11.5-14.5) % Plt Count (130-400) K/uL MPV (9.4-12.4) fL Immature Gran % (Auto) % Neut % (Auto) % Lymph % (Auto) % Lamb % (Auto) % Eos % (Auto) % Baso % (Auto) % Neut # (Auto) (1.40-6.50) K/uL Lymph # (Auto) (1.20-3.40) K/uL Lamb # (Auto) (0.11-0.59) K/uL Eos # (Auto) (0.00-0.50) K/uL Baso # (Auto) (0.00-0.20) K/uL Immature Gran # (Auto) (0.01-0.20) K/uL PT (9.0-12.0) Seconds INR (0.9-1.1) ABG pH (7.35-7.45) ABG pCO2 (35-46) mmHg ABG pO2 (80-95) mmHg ABG HCO3 (19-24) mmol/L ABG O2 Saturation (90-95) % ABG Base Excess (-9-1.8) mEq/L Gentry Test (Pos) Oxygen Given Sodium (136-145) mmol/L Potassium (3.5-5.1) mmol/L Chloride (98-107) mmol/L Carbon Dioxide (21-32) mmol/L Anion Gap (3-11) BUN (6-23) mg/dl Creatinine (0.6-1.2) mg/dl Est Cr Clr Drug Dosing Est GFR ( Amer) ml/min Est GFR (Non-Af Amer) ml/min BUN/Creatinine Ratio (10-20) Glucose (70-99(Fasting)) mg/dl POC Glucose 391 H* (70-99) mg/dl Calcium (8.6-10.3) mg/dl Magnesium (1.7-2.4) mg/dl Total Bilirubin (0.2-1.0) mg/dl AST (13-39) U/L ALT (7-52) U/L Alkaline Phosphatase (34-104) U/L Troponin I High Sens 25.9 H (0-14) pg/ml B-Natriuretic Peptide (0-100) pg/ml Total Protein (6.0-8.3) gm/dl Albumin (3.4-5.0) gm/dl Globulin (2.5-4.0) gm/dl Albumin/Globulin Ratio (0.9-2) Procalcitonin (0-0.5) ng/ml Urine Color Dark Yellow Urine Appearance Clear (Clear) Urine pH 5.0 (4.5-7.5) Ur Specific Ensign > 1.045 H (1.000-1.030) Urine Protein Trace H (Negative) Urine Glucose (UA) 3+ H (Negative) Urine Ketones Trace H (Negative) Urine Blood Negative (Negative) Urine Nitrite Negative (Negative) Urine Bilirubin Negative (Negative) Urine Urobilinogen Negative (Negative) Ur Leukocyte Esterase Negative (Negative) Urine WBC (Auto) 1-5 (0-5) /hpf Urine RBC (Auto) 0-4 (0-4) /hpf U Hyaline Cast (Auto) 1-5 (0-5) /lpf U Epithel Cells (Auto) 10-20 H (0-5) /lpf Urine Bacteria (Auto) Negative (Negative) Adenovirus (PCR) (NotDetected) B. pertussis DNA (PCR) (NotDetected) B.parapertussis DNA PCR (NotDetected) C. pneumoniae DNA (PCR) (NotDetected) Coronavirus OC43 (PCR) (NotDetected) Coronavirus HKU1 (PCR) (NotDetected) Coronavirus 229E (PCR) (NotDetected) SARS-CoV-2 (PCR) (NotDetected) Coronavirus NL63 (PCR) (NotDetected) Human Metapneumovir PCR (NotDetected) Influenza Type A (PCR) (NotDetected) Influenza Type B (PCR) (NotDetected) M. pneumoniae (PCR) (NotDetected) Parainfluenza 1 (PCR) (NotDetected) Parainfluenza 2 (PCR) (NotDetected) Parainfluenza 3 (PCR) (NotDetected) Parainfluenza 4 (PCR) (NotDetected) RSV (PCR) (NotDetected) Entero/Rhino (PCR) (NotDetected) 02/01/23 Range/Units 11:09 WBC (4.8-10.8) K/ul RBC (4.20-5.40) M/uL Hgb (12.0-16.0) g/dl Hct (37.0-47.0) % MCV (80.0-100.0) fL MCH (25.0-34.0) pg MCHC (32.0-36.0) g/dL RDW Std Deviation (36.4-46.3) fL RDW Coeff of Lashae (11.5-14.5) % Plt Count (130-400) K/uL MPV (9.4-12.4) fL Immature Gran % (Auto) % Neut % (Auto) % Lymph % (Auto) % Lamb % (Auto) % Eos % (Auto) % Baso % (Auto) % Neut # (Auto) (1.40-6.50) K/uL Lymph # (Auto) (1.20-3.40) K/uL Lamb # (Auto) (0.11-0.59) K/uL Eos # (Auto) (0.00-0.50) K/uL Baso # (Auto) (0.00-0.20) K/uL Immature Gran # (Auto) (0.01-0.20) K/uL PT (9.0-12.0) Seconds INR (0.9-1.1) ABG pH 7.34 L (7.35-7.45) ABG pCO2 40 (35-46) mmHg ABG pO2 77 L (80-95) mmHg ABG HCO3 22 (19-24) mmol/L ABG O2 Saturation 95.9 H (90-95) % ABG Base Excess -3.9 (-9-1.8) mEq/L Gentry Test Pos (Pos) Oxygen Given 13L Sodium (136-145) mmol/L Potassium (3.5-5.1) mmol/L Chloride (98-107) mmol/L Carbon Dioxide (21-32) mmol/L Anion Gap (3-11) BUN (6-23) mg/dl Creatinine (0.6-1.2) mg/dl Est Cr Clr Drug Dosing Est GFR ( Amer) ml/min Est GFR (Non-Af Amer) ml/min BUN/Creatinine Ratio (10-20) Glucose (70-99(Fasting)) mg/dl POC Glucose (70-99) mg/dl Calcium (8.6-10.3) mg/dl Magnesium (1.7-2.4) mg/dl Total Bilirubin (0.2-1.0) mg/dl AST (13-39) U/L ALT (7-52) U/L Alkaline Phosphatase (34-104) U/L Troponin I High Sens (0-14) pg/ml B-Natriuretic Peptide (0-100) pg/ml Total Protein (6.0-8.3) gm/dl Albumin (3.4-5.0) gm/dl Globulin (2.5-4.0) gm/dl Albumin/Globulin Ratio (0.9-2) Procalcitonin (0-0.5) ng/ml Urine Color Urine Appearance (Clear) Urine pH (4.5-7.5) Ur Specific Ensign (1.000-1.030) Urine Protein (Negative) Urine Glucose (UA) (Negative) Urine Ketones (Negative) Urine Blood (Negative) Urine Nitrite (Negative) Urine Bilirubin (Negative) Urine Urobilinogen (Negative) Ur Leukocyte Esterase (Negative) Urine WBC (Auto) (0-5) /hpf Urine RBC (Auto) (0-4) /hpf U Hyaline Cast (Auto) (0-5) /lpf U Epithel Cells (Auto) (0-5) /lpf Urine Bacteria (Auto) (Negative) Adenovirus (PCR) (NotDetected) B. pertussis DNA (PCR) (NotDetected) B.parapertussis DNA PCR (NotDetected) C. pneumoniae DNA (PCR) (NotDetected) Coronavirus OC43 (PCR) (NotDetected) Coronavirus HKU1 (PCR) (NotDetected) Coronavirus 229E (PCR) (NotDetected) SARS-CoV-2 (PCR) (NotDetected) Coronavirus NL63 (PCR) (NotDetected) Human Metapneumovir PCR (NotDetected) Influenza Type A (PCR) (NotDetected) Influenza Type B (PCR) (NotDetected) M. pneumoniae (PCR) (NotDetected) Parainfluenza 1 (PCR) (NotDetected) Parainfluenza 2 (PCR) (NotDetected) Parainfluenza 3 (PCR) (NotDetected) Parainfluenza 4 (PCR) (NotDetected) RSV (PCR) (NotDetected) Entero/Rhino (PCR) (NotDetected) Imaging Data My Impression: Chest x-ray obtained today was reviewed by me and read by radiology. She has heart enlargement. No pneumothorax. Trace bilateral pleural effusions. Diffuse interstitial and vascular thickening consistent with pulmonary edema. CTA obtained today shows no evidence for pulmonary embolus. Moderate pulmonary edema with small to moderate bilateral pleural effusions. There is also cardiomegaly. Patchy bilateral airspace opacities can suggest superimposed pneumonia versus pulmonary edema. There is a progressive thickening of a right apical density. 6-month chest CT follow-up is recommended. ECG Data Additional Comments: EKG obtained today was reviewed with Dr. Melo. It shows a sinus tachycardia with a rate of 123. No acute ST or T wave changes are present. It was compared with her previous EKG from February 2021. PVCs were present at that time but are not present now. Blood Pressure Blood Pressure Findings: Elevated blood pressure Blood Pressure Disposition: Referred to patients primary care provider MDM Narrative The patient was evaluated in room B8. Conservative care measures were discussed. IV was established. Labs were obtained. She was placed on a director of cardiac rehabilitation and remained in a tachycardic rhythm while in the department. Her BioFire swab was entirely unremarkable. Chest x-ray suggested COPD. Given her symptoms, possibility of PE was considered. She was sent for CT imaging of her chest with IV contrast. No PE was noted. Upon return to the department, the patient became significantly more diaphoretic, restless, and her oxygen level dropped. She was placed on BiPAP, and felt considerably better. Blood cultures were obtained. A Finch catheter was placed and the patient was given Lasix 20 mg IV. She was also given 1 inch of Nitropaste on her chest. ABG was obtained that showed given her increased oxygen need, she was deemed appropriate for admission and further work-up. The patient is in agreement. Care plan was discussed with Dr. Melo. He also evaluated the patient and concurred with today's diagnosis and treatment plan. Hospitalist service was consulted. Please see that dictation for final management. She remained stable while in the ED. Impression & Plan Acute on chronic systolic CHF (congestive heart failure) Admission for further work-up. Discharge Plan Visit Data Chief Complaint: Flu Like Symptoms Stated Complaint: SOB,COUGH,HARD TO BREATHE ED Provider: Oneal Melo ED Midlevel Provider: Earl Morris Discharge Problem: Acute on chronic systolic CHF (congestive heart failure) Patient Disposition: Admitted As Inpatient Discharge Instructions Interventions: ED Discharge Assessment Last Done: 02/01/23 12:02 Addendum February 04, 2023 21:38 HPI: The patient is a 72-year-old woman with a past medical history of hypertension, diabetes, GERD who presents to the emergenc department for worsening cough, congestion shortness of breath for the past couple of days. She reports her symptoms began with nasal congestion did not feel short of breath initially. She reports she was visited by her granddaughter naheed Ewing who had cold symptoms. A/P: EKG demonstrates sinus tachycardia 123 bpm, no ectopy, no overt ST elevation or depression, QTc 443, QRS 92. Chest x-ray demonstrates cardiomegaly with trace bilateral pleural effusions and diffuse interstitial thickening as well as vascular thickening suggestive of pulmonary edema. WBC 12.3 with neutrophil predominance on the left shift. H/H and platelets within normal limits. Chemistry without metabolic acidosis but with hyperglycemia of 380. Magnesium 1.6. High-sensitivity troponin 25, nonspecific and BNP 700, concerning for new CHF. Procalcitonin is undetectable. Respiratory viral panel/BioFire was negative. CT of the chest was performed to exclude pulmonary embolism resulting in heart failure and this was negative for PE. However further characterization of moderate pulmonary edema with small to moderate bilateral pleural effusions is seen. Additional note is made of patchy bilateral airspace opacities likely representing component of pulmonary edema though superimposed infection cannot excluded. Upon return from CT the patient's shortness of breath had worsened significantly likely resulting in flash pulmonary edema with bilateral rails/crackles on my examination. I did perform a limited bedside cardiac ultrasound which was suggestive of new systolic heart failure. Nitroglycerin paste was applied for afterload reduction and patient was placed on BiPAP with stabilization of breathing. Finch catheter ordered as well as IV Lasix. Patient was referred to hospital service for admission for further management. I was consulted by the Advanced Practice Provider and was substantively involved in the patient's visit.This includes aspects of the HPI, MDM, diagnostic interpretations, and disposition/plan. I discussed the case with the ELENA, examined the patient, and agree with the findings and plan as documented in ELENA Arturo's note.
[2023-02-01 08:32] LABS: Prothrombin Time 10.9 Seconds (9.0-12.0)
--- NOTE | 2023-02-01 08:33 | Electrocardiogram Report ---
Test Reason : Blood Pressure : / mmHG Vent. Rate : 123 BPM Atrial Rate : 123 BPM P-R Int : 174 ms QRS Dur : 092 ms QT Int : 310 ms P-R-T Axes : 065 076 055 degrees QTc Int : 443 ms Sinus tachycardia Otherwise normal ECG When compared with ECG of 20-FEB-2021 12:36, Premature ventricular complexes are no longer Present Confirmed by Perez Nicholson ([id number]) on 02/01/2023 8:33:26 AM Referred By: REFERRED SELF Confirmed By:Perez Nicholson
--- NOTE | 2023-02-01 08:34 | XRay Report ---
XR chest 2V PA/lateral HISTORY: Dyspnea COMPARISON: Chest 02/20/2021. FINDINGS: No pneumothorax. The heart is enlarged. This is increased in size. There are trace bilatera l pleural effusions. There is diffuse interstitial/vascular thickening consistent with pulmonary medhat a. This is new compared to the prior study. IMPRESSION: Cardiomegaly, pulmonary edema, and trace bilateral pleural effusions. ACT 112: Negative or not required by law. Electronically signed by: Jonnie Hedrick M.D. 02/01/2023 8:33 AM
[2023-02-01 08:36] LABS: Alanine Aminotransferase 17 U/L (7-52); Albumin Globulin Ratio 1.2 (0.9-2); Albumin Level 4.3 gm/dl (3.4-5.0); Alkaline Phosphatase 57 U/L (34-104); Anion Gap 11 (3-11); Aspartate Aminotransferase 17 U/L (13-39); BUN Creatinine Ratio 21.1 (10-20); Bilirubin,Total 0.7 mg/dl (0.2-1.0); Blood Urea Nitrogen 15 mg/dl (6-23); Calcium 9.5 mg/dl (8.6-10.3); Carbon Dioxide 22 mmol/L (21-32); Chloride 101 mmol/L (98-107); Est GFR (African American) 97.9 ml/min; Est GFR (Non-African American) 84.5 ml/min; Globulin 3.5 gm/dl (2.5-4.0); Glucose 380 mg/dl (70-99(Fasting)); Potassium 4.3 mmol/L (3.5-5.1); Sodium 134 mmol/L (136-145); Total Protein 7.8 gm/dl (6.0-8.3)
[2023-02-01 08:52] LABS: Adenovirus PCR Not Detected (NotDetected); Bordetella parapertussis PCR Not Detected (NotDetected); Bordetella pertussis PCR Not Detected (NotDetected); Chlamydia pneumoniae PCR Not Detected (NotDetected); Coronavirus 229E PCR Not Detected (NotDetected); Coronavirus CoV-2 (COVID19)PCR Not Detected (NotDetected); Coronavirus HKU1 PCR Not Detected (NotDetected); Coronavirus NL63 PCR Not Detected (NotDetected); Coronavirus OC43PCR Not Detected (NotDetected); Human Metapneumovirus PCR Not Detected (NotDetected); Influenza A PCR Not Detected (NotDetected); Influenza B PCR Not Detected (NotDetected); Mycoplasma pneumoniae PCR Not Detected (NotDetected); Parainfluenza Virus 1 PCR Not Detected (NotDetected); Parainfluenza Virus 2 PCR Not Detected (NotDetected); Parainfluenza Virus 3 PCR Not Detected (NotDetected); Parainfluenza Virus 4 PCR Not Detected (NotDetected); Respiratory Syncytial VirusPCR Not Detected (NotDetected); Rhinovirus/Enterovirus PCR Not Detected (NotDetected)
[2023-02-01] MEDS ORDERED: OPTIRAY 320 125ml IV ONE (09:21)
[2023-02-01] MEDS ORDERED: NITROGLYCERIN 2% OINTMENT 30GM TUBE EXT ONE (09:59)
--- NOTE | 2023-02-01 10:01 | CT Scan Report ---
CHEST CTA for PULMONARY ARTERIES CT DOSE: 916.87 mGy.cm HISTORY: Shortness of breath. TECHNIQUE: Multiaxial CT images of the chest were performed following the intravenous administration of contrast to evaluate the pulmonary arteries. 3D/Maximal intensity projection images were also obta ined. Sagittal and coronal reformations were also reviewed. A dose lowering technique was utilized a dhering to the principles of ALARA. COMPARISON STUDY: Chest CT 11/02/2021. FINDINGS: There is retrograde opacification of contrast into the hepatic veins. The visualized spleen and adrenal glands unremarkable. Small to moderate bilateral pleural effusions are noted. Normal eso phagus. The heart is enlarged. No pericardial effusion. No mediastinal or hilar lymphadenopathy. Norm al caliber thoracic aorta with mild calcified plaque. Inadequate contrast within the thoracic aorta t o assess for a dissection. However, no evidence for an intramural hematoma. No acute fractures. No pn eumothorax. The central airways appear patent. Progressive thickness in the right apical density on i mage 172. This measures 16 x 9 mm, previously measuring 16 x 5 mm. Diffuse interlobular septal thicke dwain consistent with moderate pulmonary edema. There are few patchy groundglass and consolidative air space opacities no filling defects within the pulmonary arteries to suggest a pulmonary embolus. Seen within the lungs which likely represent a component of the pulmonary edema. A superimposed pneumonia is also considered in the differential diagnosis. IMPRESSION: 1. No evidence for a pulmonary embolus. 2. Moderate pulmonary edema with small to moderate bilateral pleural fusions and cardiomegaly. 3. Patchy bilateral airspace opacities likely representing a component of the pulmonary edema. A supe rimposed pneumonia would also be considered in the differential diagnosis. 4. Progressive thickening within the 16 x 9 mm right apical density. Six-month chest CT follow-up rec ommended to ensure stability/resolution. ACT 112: Positive. There are findings on this exam that require communication between the performing entity and the patient following Patient Test Result Information Act ([place] Act 112) guidelines. Electronically signed by: Jonnie Hedrick M.D. 02/01/2023 9:59 AM
[2023-02-01] MEDS ORDERED: FUROSEMIDE INJ 20 MG/2 ML VIAL IV ONE (10:11)
--- NOTE | 2023-02-01 10:28 | History & Physical Report ---
Date of Service February 01, 2023 Assessment & Plan (1) SOB (shortness of breath): Plan: Worsening SOB x2 days Patient endorses salty diet the week of Thanksgiving She denies hx of CHF Patient came in hypoxic at 88% on RA, and acutely decompensated while laying supine for CT scan She was started on BiPAP in the ED ABG pH 7.34, ABG PCO2 WNL at 40 CXR revealed cardiomegaly, pulmonary edema, and trace bilateral pleural effusions Chest CTA revealed no pulmonary embolus BioFire negative Procalcitonin WNL Last echo revealed LVEF 50-55% and mild MR Repeat echo pending Continuous telemetry monitoring Lasix 40 mg IV twice daily Increase potassium 20mEQ daily --> BID Continue on BiPAP, and trial high flow nasal cannula if patient's oxygen status improves A.m. CBC, BMP, mag, troponin (2) Type 2 diabetes mellitus: Plan: Last A1c 6.4% on 10/09/2022 Hold metformin Glucose was 380 on arrival, 6u NovoLog given in the ED SSI with Lantus 10u twice daily Target BSG range 110-140, CF 30, carb ratio 10 Keep n.p.o. while on BiPAP then advance to T2DM/AHA diet as tolerated BSG ACHS, q6h while NPO Adjust regimen as needed Pharmacy glycemic consult AM A1c (3) Sleep apnea: Plan: Patient normally uses CPAP at night BiPAP or CPAP HS (4) Hypertension: Plan: BP 141/100 at time of admission Continue losartan Hold HCTZ while receiving Lasix therapy (5) Depression: Plan: Continue venlafaxine (6) GERD (gastroesophageal reflux disease): Plan: Patient reports she vomited on Saturday 01/27 after taking oral pills on an empty stomach Famotidine 20 mg IV QAM while on BiPAP Omeprazole 40 mg --> pantoprazole 40 mg daily (7) Elevated troponin: Plan: Troponin 25.0 --> 25.9, repeat pending Clinically, patient denies CP Follow a.m. troponin (8) Dyslipidemia: Plan: Patient is no longer taking her atorvastatin 20 mg p.o. daily She reports that it has an awful taste and causes side effects, which she is unable to describe Crestor allergy listed as "myalgia" Will hold statins for now A.m. fasting lipid panel (9) Hypomagnesemia: Plan: Magnesium 1.6 on arrival Magnesium sulfate 3g ordered Repeat mag with a.m. labs Plan Disposition: Admit to PCU telemetry DNR/DNI Keep n.p.o. while on BiPAP then advance to AHA/T2DM diet as tolerated VTE PPx: SCDs, heparin 5000u SQ q12h History of Present Illness Chief Complaint: Flu-like symptoms Primary Care Provider: Alisa Prabhakar MD [place] is a 72-year-old female with PMH of T2DM, mild MR, dyslipidemia, sleep apnea, HTN, insomnia, and depression. She presented for worsening SOB x2 days. She reports that she had a high sodium diet the week . SOB is at rest. It is worse when lying flat on her back. Patient normally uses CPAP at night; no other at home oxygen use. She has been having an ongoing productive cough this week with clear sputum production. She reports that she was feeling sick before , but reports that her granddaughter was also sick at . No recent hospitalizations or surgeries. She reports that she took metformin this morning, but no other medications. She manages her own medications at home. Patient was hypoxic at 88% on RA on arrival, and was placed on BiPAP after her CT scan. ED course: Lasix 20 mg IV Started on BiPAP ROS: Patient endorses SOB at rest, productive cough, sweating, and one episode of vomiting on Saturday 01/27 (which patient attributes to taking pills on an empty stomach) Patient denies fever, chills, dizziness, lightheadedness, SCHULZ, CP, pleuritic CP, abdominal pain, nausea, burning with urination, saddle anesthesia, and numbness/tingling/swelling in the legs. No PMHx of COPD, asthma, HF, [place], DVT/PE, cancer Allergies Allergy/AdvReac Type Severity Reaction Status Date / Time latex Allergy Mild RASH Verified 10/14/22 07:47 dextromethorphan Allergy Unknown Unknown Verified 10/14/22 07:47 [From NyQuil] doxylamine [From NyQuil] Allergy Unknown Unknown Verified 10/14/22 07:47 pseudoephedrine [From NyQuil] Allergy Unknown Unknown Verified 10/14/22 07:47 bacitracin AdvReac Mild "change in Verified 10/14/22 07:47 skin color, itch" neomycin AdvReac Mild "change in Verified 10/14/22 07:47 skin color, itch" polymyxin B AdvReac Mild "change in Verified 10/14/22 07:47 skin color, itch" acetaminophen AdvReac Unknown COUGH/ANXIO Verified 10/14/22 07:47 US diphenhydramine AdvReac Unknown COUGH/ANXIO Verified 10/14/22 07:47 US ibuprofen AdvReac Unknown COUGH/ANXIO Verified 10/14/22 07:47 US naproxen AdvReac Unknown COUGH/ANXIO Verified 10/14/22 07:47 US crestor AdvReac myalgia Uncoded 12/29/22 18:22 Home Medications Medication Instructions Recorded Confirmed Type vitamin B complex (B 1 tab PO DAILY 10/07/18 02/01/23 History Complex-Vitamin B12 tablet) blood sugar diagnostic (Accu-Chek #100 ea 08/06/19 10/14/22 Rx Marleni Plus test strips) lancing device with lancets kit #100 ea 08/06/19 10/14/22 Rx (Accu-Chek Softclix Lancing Device+Lancets kit) desoximetasone 0.25 % topical 1 appln topical BID #60 grams 09/13/19 02/01/23 Rx ointment ferrous sulfate 325 mg (65 mg 325 mg PO DAILY 03/22/20 02/01/23 History iron) tablet (Feosol) multivitamin 1 tab PO DAILY 03/22/20 02/01/23 History ondansetron 4 mg disintegrating 4 mg PO Q6 PRN nausea and vomiting 05/26/21 02/01/23 Rx tablet #14 tabs hydrochlorothiazide 25 mg tablet 25 mg PO DAILY #90 tabs 04/02/22 02/01/23 Rx losartan 100 mg tablet 100 mg PO DAILY #90 tabs 04/02/22 02/01/23 Rx venlafaxine 75 mg capsule,extended 75 mg PO DAILY #90 caps 04/02/22 02/01/23 Rx release 24 hr bupropion HCl 300 mg 24 hr tablet, 300 mg PO QAM 90 days #90 tabs 10/03/22 02/01/23 Rx extended release (Wellbutrin XL) metformin 500 mg tablet 500 mg PO TIDWMEAL #270 tabs 10/17/22 02/01/23 Rx zolpidem 10 mg tablet (Ambien) 10 mg PO QPM PRN insomnia #90 tabs 10/17/22 02/01/23 Rx mometasone 0.1 % topical cream 1 applic topical DAILY #45 grams 11/14/22 02/01/23 Rx potassium chloride 10 mEq 20 meq (2 x 10 mEq) PO DAILY #180 11/14/22 02/01/23 Rx tablet,extended release(part/cryst) tabs omeprazole 40 mg capsule,delayed 40 mg PO DAILY #90 caps 11/18/22 02/01/23 Rx release venlafaxine 150 mg 150 mg PO DAILY #90 caps 12/02/22 02/01/23 Rx capsule,extended release 24 hr benzonatate 100 mg capsule 100 mg PO TID PRN cough #30 caps 12/19/22 02/01/23 Rx sodium sul 1.479 gram-potas ch See Rx Instructions PO .COMPLEX 01/24/23 02/01/23 Rx 0.188 gram-magnes sul 0.225 gram #24 tabs tablet (Sutab) Past Med/Surg History Medical History (Updated 02/01/23 @ 15:16 by Jonnie Rinaldi PA-C) Type 2 diabetes mellitus Sleep apnea Insomnia Hypertension Esophageal reflux Hemorrhoids Eczema Atopic dermatitis Anxiety Surgical History S/P colonoscopy (03/06/11) Sigmoid diverticulosis, otherwise normal. Recheck 10 years Family History Father Asthma Diabetes Hepatic disorder Sister Carotid artery stenosis Diabetes Mother Stroke Diabetes Brother Diabetes Denies family history of Ovarian cancer Prostate cancer Myocardial infarction Breast cancer Colorectal cancer Social History Smoking Status: Never smoker Second Hand Exposure: No; Do You Dip or Chew Tobacco: No; Hx Alcohol Use: No Hx Substance Use: No Preferred Language: Amharic Communication Ability: Effective Visual Impairment: No Limitations Hearing Ability: Normal Educational Institution Curator Required: No Beliefs That Will Affect Care: None marital status: Current Living Situation: Spouse current occupational status: employed current occupation: Homemaker Other Information That Helps Us Care for You: No Feels Safe at Home: Yes Safety Concerns: Feels Safe At This Time Diet: regular caffeine: Yes (Not often ) Dental Care, Regularly: Yes Seatbelt Use: always Sunscreen Use: No Assistive Devices: CPAP and Glasses Review of Systems Review of Systems: See HPI above Physical Exam Physical Exam: General: Anxious; mild respiratory distress; diaphoretic; cooperative; 95% SPO2 on BiPAP PEEP 6 HEENT: normocephalic, atraumatic; no scleral icterus; PERRLA w/ EOMs intact; moist mucus membrane; vision and hearing grossly intact Neck: supple; negative for JVD; no lymphadenopathy; trachea midline Skin: warm, dry without signs of tenting; no cyanosis; no rashes, bruising, lesions, or erythema noted CV: chest wall NTP; RRR; S1/S2 normal; no murmurs/rubs/gallops; pulses intact and symmetric at radial, DP, and PT Lungs: Mild respiratory distress; symmetrical chest wall expansion; expiratory rhonchi auscultated at the right lower lobe anteriorly ABD: Soft, NTP; BS present; no rebound/guarding; no ascites; mild distention; no signs of bruising or rashes : Ifnch in place draining clear yellow urine; 400 cc in Finch bag s/p Lasix MSK: no tics or fasciculations; no edema noted in the LEs b/l, nonerythematous Neuro: A&Ox3; normal mood and affect; fluent speech; no focal deficits; sensation grossly intact in the LEs B/L Results & Data Results & Data Vital Signs (Past 12 Hours) Vital Signs Temp Pulse Pulse Resp BP BP Pulse Ox 02/01/23 10:07 131 H 30 H 95 02/01/23 09:40 128 H 31 H 93 02/01/23 09:30 124 H 29 H 95 02/01/23 09:25 127 H 29 H 90 02/01/23 09:25 164/100 H 02/01/23 09:23 129 H 25 H 02/01/23 09:00 118 H 20 96 02/01/23 08:50 120 H 23 95 02/01/23 08:44 122 H 26 H 96 02/01/23 08:44 144/111 H 02/01/23 08:40 125 H 27 H 99 02/01/23 08:34 95 02/01/23 08:22 106 H 02/01/23 08:20 108 H 20 98 02/01/23 08:18 88 L 02/01/23 08:10 111 H 19 98 02/01/23 08:00 112 H 24 95 02/01/23 07:53 123 H 27 H 94 02/01/23 07:30 126 H 18 187/100 H 98 02/01/23 07:12 36.8 C 128 H 20 160/81 H 90 O2 Del Method O2 Flow Rate FiO2 02/01/23 10:07 40 02/01/23 09:40 02/01/23 09:30 02/01/23 09:25 02/01/23 09:25 02/01/23 09:23 02/01/23 09:00 02/01/23 08:50 02/01/23 08:44 02/01/23 08:44 02/01/23 08:40 02/01/23 08:34 02/01/23 08:22 02/01/23 08:20 02/01/23 08:18 Nasal Cannula 0 02/01/23 08:10 02/01/23 08:00 02/01/23 07:53 02/01/23 07:30 Nasal Cannula 3 02/01/23 07:12 Room Air Laboratory Results Abnormal lab results 02/01/23 02/01/23 02/01/23 Range/Units 07:50 09:36 10:25 WBC 12.35 H (4.8-10.8) K/ul MCHC 31.8 L (32.0-36.0) g/dL RDW Std Deviation 49.2 H (36.4-46.3) fL Neut # (Auto) 8.63 H (1.40-6.50) K/uL ABG pH (7.35-7.45) ABG pO2 (80-95) mmHg ABG O2 Saturation (90-95) % Sodium 134 L (136-145) mmol/L BUN/Creatinine Ratio 21.1 H (10-20) Glucose 380 H* (70-99(Fasting)) mg/dl POC Glucose 391 H* (70-99) mg/dl Troponin I High Sens 25.0 H 25.9 H (0-14) pg/ml B-Natriuretic Peptide 729 H (0-100) pg/ml Ur Specific [place] (1.000-1.030) Urine Protein (Negative) Urine Glucose (UA) (Negative) Urine Ketones (Negative) U Epithel Cells (Auto) (0-5) /lpf 02/01/23 02/01/23 Range/Units 10:50 11:09 WBC (4.8-10.8) K/ul MCHC (32.0-36.0) g/dL RDW Std Deviation (36.4-46.3) fL Neut # (Auto) (1.40-6.50) K/uL ABG pH 7.34 L (7.35-7.45) ABG pO2 77 L (80-95) mmHg ABG O2 Saturation 95.9 H (90-95) % Sodium (136-145) mmol/L BUN/Creatinine Ratio (10-20) Glucose (70-99(Fasting)) mg/dl POC Glucose (70-99) mg/dl Troponin I High Sens (0-14) pg/ml B-Natriuretic Peptide (0-100) pg/ml Ur Specific [place] > 1.045 H (1.000-1.030) Urine Protein Trace H (Negative) Urine Glucose (UA) 3+ H (Negative) Urine Ketones Trace H (Negative) U Epithel Cells (Auto) 10-20 H (0-5) /lpf Diagnostic Findings Chest X-Ray 02/01/23 07:36 XR chest 2V PA/lateral HISTORY: Dyspnea COMPARISON: Chest 02/20/2021. FINDINGS: No pneumothorax. The heart is enlarged. This is increased in size. There are trace bilateral pleural effusions. There is diffuse interstitial/vascular thickening consistent with pulmonary edema. This is new compared to the prior study. IMPRESSION: Cardiomegaly, pulmonary edema, and trace bilateral pleural effusions. ACT 112: Negative or not required by law. Electronically signed by: Jonnie Hedrick M.D. 02/01/2023 8:33 AM Chest CTA 02/01/23 08:57 CHEST CTA for PULMONARY ARTERIES CT DOSE: 916.87 mGy.cm HISTORY: Shortness of breath. TECHNIQUE: Multiaxial CT images of the chest were performed following the intravenous administration of contrast to evaluate the pulmonary arteries. 3D/Maximal intensity projection images were also obtained. Sagittal and coronal reformations were also reviewed. A dose lowering technique was utilized adhering to the principles of ALARA. COMPARISON STUDY: Chest CT 11/02/2021. FINDINGS: There is retrograde opacification of contrast into the hepatic veins. The visualized spleen and adrenal glands unremarkable. Small to moderate bilateral pleural effusions are noted. Normal esophagus. The heart is enlarged. No pericardial effusion. No mediastinal or hilar lymphadenopathy. Normal caliber thoracic aorta with mild calcified plaque. Inadequate contrast within the thoracic aorta to assess for a dissection. However, no evidence for an intramural hematoma. No acute fractures. No pneumothorax. The central airways appear patent. Progressive thickness in the right apical density on image 172. This measures 16 x 9 mm, previously measuring 16 x 5 mm. Diffuse interlobular septal thickening consistent with moderate pulmonary edema. There are few patchy groundglass and consolidative airspace opacities no filling defects within the pulmonary arteries to suggest a pulmonary embolus. Seen within the lungs which likely represent a component of the pulmonary edema. A superimposed pneumonia is also considered in the differential diagnosis. IMPRESSION: 1. No evidence for a pulmonary embolus. 2. Moderate pulmonary edema with small to moderate bilateral pleural fusions and cardiomegaly. 3. Patchy bilateral airspace opacities likely representing a component of the pulmonary edema. A superimposed pneumonia would also be considered in the differential diagnosis. 4. Progressive thickening within the 16 x 9 mm right apical density. Six-month chest CT follow-up recommended to ensure stability/resolution. ACT 112: Positive. There are findings on this exam that require communication between the performing entity and the patient following Patient Test Result Information Act ([place] Act 112) guidelines. Electronically signed by: Jonnie Hedrick M.D. 02/01/2023 9:59 AM Code Status & VTE Plan Code Status DNR/DNI VTE Prophylaxis Plan VTE Prophylaxis will be ordered: Yes Supervising Physician Co-Signing Physician Notes [place] is a 72-year-old female who presents with cough productive for clear sputum, shortness of breath x2 days with orthopnea after Thanksgiving. She does not have a prior history of CHF or COPD. She does have history of REUBEN on CPAP nightly she does not have a prior oxygen requirement. In the ER she is initially on 3 L of oxygen, subsequently after being laid on her back for CTA was more hypoxic and diaphoretic and was placed on BiPAP. She is rapidly clinic ally improving with BiPAP and Lasix 20 mg. CTA shows no evidence of PE but does show moderate pulmonary edema and bilateral pleural effusions. Patchy airspace opacities suspicious for edema but from which superimposed pneumonia cannot be ruled out. Apical right density is noted, this will require 6-month repeat follow-up CT. Patient notified of this. Patient seen at bedside. Patient reports she had a very high salt intake over and shortly thereafter had progressive worsening shortness of breath. Denies a history of CHF in the past. She reports she has not had chest pain in any time. She endorses orthopnea, new. She has not had any fever, chills, sweats. She has had no night sweats. She has not had leg swelling. Acute shortness of breath, suspect CHF With pulmonary edema. No fever/chills. She does have a leukocytosis of 12 with no left shift without fever, normal Pro-[place]. Suspect leukocytosis from demargination, will follow fever curve and if uptrending or patient clinically worsening start empiric Rocephin/azithromycin for CAP coverage. No consolidation is noted on CT. Last echo 50-55% EF without wall motion abnormalities and trivial pericardial effusion. Patient given Lasix 20 mg with brisk diuresis, continued twice daily with strict ins and outs. Patient was emptied for 400 and around 1115, and has another 400 of output around noon time; diuresing well and clinically improving. 2g sodium restricted. Trial off BiPAP and another 1 to 2 hours if continuing to clinically progress. ABG 7.3 4/40/77/22. No chest pain, troponin is minimally elevated at 25/25.9. Echo pending. BNP is elevated consistent with CHF. EKG shows sinus tachycardia without territorial signs of ischemia and a normal QTc. DM 2: On metformin monotherapy, hyperglycemic on admission. Basal bolus stress level 2 ordered as above. Patient receiving scaled coverage on admission, will recheck in 2 hours and can give additional versus one-time IV dose at that time based on repeat. Type II DM without elevated anion gap and is clinically hypervolemic. Renal function is at baseline. Agree with assessment and management above PG Care Time/CCT Total # of Minutes Spent Total Time Spent with Patient: Total time spent is greater than 50% in coordination of care (as documented) at patient's floor/unit and/or counseling patient: [place] [address] INT INP/OBS CARE 3MIN Patient Type Established History Comprehensive Exam Comprehensive Medical Decision Making High Complexity Diagnoses SOB (shortness of breath) R06.02 Type 2 diabetes mellitus E11.9 Sleep apnea G47.30 Hypertension I10 Depression F32.9 GERD (gastroesophageal reflux disease) K21.9 Elevated troponin R79.89 Dyslipidemia E78.5 Hypomagnesemia E83.42
[2023-02-01 11:09] LABS: Appearance Urine Clear (Clear); Bacteria Urine Automated Negative (Negative); Bilirubin Urine Negative (Negative); Blood Urine Negative (Negative); Color Urine Dark Yellow; Glucose Urine UA 3+ (Negative); Ketones Urine Trace (Negative); Leukocyte Esterase Urine Negative (Negative); Nitrite Urine Negative (Negative); Protein Urine Trace (Negative); RBC Urine Automated 0-4 /hpf (0-4); Specific Gravity Urine > 1.045 (1.000-1.030); Urobilinogen Urine Negative (Negative)
[2023-02-01 11:16] LABS: Allen Test Pos (Pos); Base Excess ABG -3.9 mEq/L (-9-1.8); HCO3 ABG 22 mmol/L (19-24); Oxygen Saturation ABG 95.9 % (90-95); PCO2 ABG 40 mmHg (35-46); PO2 ABG 77 mmHg (80-95); pH ABG 7.34 (7.35-7.45)
[2023-02-01] MEDS ORDERED: INSULIN ASPART PER UNIT CHARGE SC STA (11:23)
[2023-02-01] MEDS ORDERED: FAMOTIDINE 20 MG in SYRINGE 3 ML IV STA (11:33)
[2023-02-01] MEDS ORDERED: VENLAFAXINE HCL XR 75 MG CAPXR PO STA (11:34)
[2023-02-01] MEDS ORDERED: LOSARTAN POTASSIUM 50 MG TAB PO STA (11:34)
[2023-02-01] MEDS ORDERED: POTASSIUM CHLORIDE CRTAB 20 MEQ TABCR PO STA (11:34)
[2023-02-01] MEDS ORDERED: VENLAFAXINE HCL XR 150 MG CAPXR PO STA (11:34)
[2023-02-01 11:59] LABS: Magnesium 1.6 mg/dl (1.7-2.4)
[2023-02-01] MEDS ORDERED: GLUCOSE 40% GEL 15 GM TUBE PO PRN (13:15)
[2023-02-01] MEDS ORDERED: BENZONATATE 100 MG CAPSULE PO PRN (13:15)
[2023-02-01] MEDS ORDERED: CARBOHYDRATES FOR HYPOGLYCEMIA PO PRN (13:15)
[2023-02-01] MEDS ORDERED: PHARMACY GLYCEMIC MGMT CONSULT PRN (13:15)
[2023-02-01] MEDS ORDERED: GLUCAGON FOR INJ 1 MG VIAL SQ PRN (13:15)
[2023-02-01] MEDS ORDERED: GLUCOSE 10 TAB/TUBE PO PRN (13:15)
[2023-02-01] MEDS ORDERED: ONDANSETRON INJ 2 MG/ML 2 ML VIAL IV PRN (13:15)
[2023-02-01] MEDS ORDERED: DEXTROSE 50% 50 ML SYRINGE IV PRN (13:15)
[2023-02-01] MEDS ORDERED: LANTUS PER UNIT CHARGE SQ ONE (13:45)
[2023-02-01] MEDS: INSULIN ASPART PER UNIT CHARGE SC SCH ×3 (14:55→20:54)
--- NOTE | 2023-02-01 15:19 | Pharmacy Report ---
Pharmacy Glycemic Short Note 2 - Date of Service February 01, 2023 - Glycemic Short BSG Results (Last 24 hours): 02/01/23 02/01/23 02/01/23 07:50 10:25 14:09 Glucose 380 H* POC Glucose 391 H* 194 H OUTPATIENT ANTIDIABETIC REGIMEN: * Metformin 500 mg PO TIDM * HbA1c pending ASSESSMENT: * 72 yo F admitted on 02/01/23 secondary to shortness of breath. Pharmacy has been consulted to assist with inpatient glycemic management. Patient is a Type 2 diabetic as an outpatient. Please refer to outpatient regimen and most recent HbA1c above. * BSG elevated this AM at 391 mg/dL. Patient received 6 units of Novolog in the ED prior to transferring to the floor. Recheck was 194 mg/dL which patient was given 5 units of Novolog to correct and cover lunch carbs. * Will give a one time dose of Lantus 20 units. Reassess basal in the morning. PLAN FOR INPATIENT GLYCEMIC CONTROL: * Hold outpatient oral diabetes medications * Basal insulin * Lantus 20 units SC x 1 * Bolus insulin * NovoLog per scale ACHS or Q6hrs while NPO * Goal Range: Low 110 mg/dL - High 140 mg/dL * Correction Factor: 25 mg/dL/unit * Nutritional / Prandial insulin per carb ratio of 1 unit per 8 grams CHO consumed
[2023-02-01] MEDS: MAGNESIUM SULFATE / D5W 1 GM/100 ML BAG IV SCH ×3 (16:16→20:20)
[2023-02-01] MEDS: FUROSEMIDE 40 MG/4 ML VIAL IV SCH (17:39)
--- NOTE | 2023-02-01 19:14 | XCELERA ---
[id number] [id number]
[2023-02-01] MEDS: HEPARIN SOD 5,000 UNIT/0.5 ML VIAL SQ SCH (20:55)
[2023-02-01] MEDS: POTASSIUM CHLORIDE CRTAB 20 MEQ TABCR PO SCH (20:55)
[2023-02-01] MEDS: ZOLPIDEM TARTRATE 10 MG TAB PO PRN (21:23)
[2023-02-02 03:58] LABS: BUN Creatinine Ratio 25.8 (10-20); Calcium 9.5 mg/dl (8.6-10.3); Creatinine Clr Calc Pharmacy 81.8 ml/min; Est GFR (African American) 103.7 ml/min; Est GFR (Non-African American) 89.5 ml/min; Magnesium 2.3 mg/dl (1.7-2.4); Potassium 4.2 mmol/L (3.5-5.1)
[2023-02-02 04:11] LABS: Basophils # (auto) 0.03 K/uL (0.00-0.20); Basophils % (auto) 0.3 %; Eosinophils # (auto) 0.15 K/uL (0.00-0.50); Eosinophils % (auto) 1.4 %; Hematocrit (blood only) 39.3 % (37.0-47.0); Hemoglobin 12.9 g/dl (12.0-16.0); Immature Granulocytes # (auto) 0.03 K/uL (0.01-0.20); Immature Granulocytes % (auto) 0.3 %; Lymphocytes # (auto) 2.74 K/uL (1.20-3.40); Lymphocytes % (auto) 25.2 %; Mean Corpuscular Hemoglobin 30.3 pg (25.0-34.0); Mean Corpuscular Hgb Conc 32.8 g/dL (32.0-36.0); Mean Corpuscular Volume 92.3 fL (80.0-100.0); Mean Platelet Volume 10.2 fL (9.4-12.4); Monocytes % (auto) 6.4 %; Neutrophils # (auto) 7.24 K/uL (1.40-6.50); Neutrophils % (auto) 66.4 %; Platelet Count 266 K/uL (130-400); RDW Coefficient of Variation 14.5 % (11.5-14.5); RDW Standard Deviation 48.4 fL (36.4-46.3); Red Blood Count 4.26 M/uL (4.20-5.40); White Blood Count 10.89 K/ul (4.8-10.8)
[2023-02-02] MEDS: INSULIN ASPART PER UNIT CHARGE SC SCH ×4 (08:33→21:15)
[2023-02-02] MEDS: HEPARIN SOD 5,000 UNIT/0.5 ML VIAL SQ SCH ×2 (08:34→21:12)
[2023-02-02] MEDS: MOMETASONE FUROATE 0.1% CR 15 GM TUBE EXT SCH (08:37)
[2023-02-02] MEDS: FAMOTIDINE 20 MG in SYRINGE 3 ML IV SCH (08:39)
[2023-02-02] MEDS: LOSARTAN POTASSIUM 50 MG TAB PO SCH (08:39)
[2023-02-02] MEDS: PANTOprazole 40 MG TAB PO SCH (08:39)
[2023-02-02] MEDS: VENLAFAXINE HCL XR 75 MG CAPXR PO SCH (08:40)
[2023-02-02] MEDS: buPROPion XL 300 MG TABCR PO SCH (08:40)
[2023-02-02] MEDS: FERROUS SULFATE 325 MG TAB PO SCH (08:40)
[2023-02-02] MEDS: FUROSEMIDE 40 MG/4 ML VIAL IV SCH ×2 (08:40→16:34)
[2023-02-02] MEDS: POTASSIUM CHLORIDE CRTAB 20 MEQ TABCR PO SCH ×2 (08:40→21:09)
[2023-02-02] MEDS: VENLAFAXINE HCL XR 150 MG CAPXR PO SCH (08:40)
[2023-02-02] MEDS ORDERED: LANTUS PER UNIT CHARGE SQ SCH (09:00)
--- NOTE | 2023-02-02 11:37 | Hospitalist Progress Note ---
Date of Service February 02, 2023 Assessment & Plan (1) Acute on chronic systolic CHF (congestive heart failure): Plan: Acute CHFwrEF Etiology is uncertain, could be Takosubo or viral myocarditis or ACS ECHO on admission showed EF15-20%, with global hypokinesis, before then an ECHO done in 04/20 showed EF50-55% Cardiology on board continue diuresis with lasix monitor I/O, daily weights Possible cardiac cath on Friday (2) SOB (shortness of breath): Plan: Worsening SOB x2 days, likely due to newly diagnosed acute CHF Patient endorses salty diet the week of Thanksgiving She denies hx of CHF Patient came in hypoxic at 88% on RA, and acutely decompensated while laying supine for CT scan She was started on BiPAP in the ED ABG pH 7.34, ABG PCO2 WNL at 40 CXR revealed cardiomegaly, pulmonary edema, and trace bilateral pleural effusions Chest CTA revealed no pulmonary embolus BioFire negative Procalcitonin WNL (3) Type 2 diabetes mellitus: Plan: Last A1c 6.4% on 10/09/2022 Hold metformin Glucose was 380 on arrival, 6u NovoLog given in the ED SSI with Lantus 10u twice daily Target BSG range 110-140, CF 30, carb ratio 10 Keep n.p.o. while on BiPAP then advance to T2DM/AHA diet as tolerated BSG ACHS, q6h while NPO Adjust regimen as needed Pharmacy glycemic consult AM A1c (4) Sleep apnea: Plan: Patient normally uses CPAP at night BiPAP or CPAP HS (5) Hypertension: Plan: BP under good control Continue losartan Hold HCTZ while receiving Lasix therapy (6) Depression: Plan: Continue venlafaxine (7) GERD (gastroesophageal reflux disease): Plan: Patient reports she vomited on Saturday 01/27 after taking oral pills on an empty stomach Famotidine 20 mg IV QAM while on BiPAP Omeprazole 40 mg --> pantoprazole 40 mg daily (8) Elevated troponin: Plan: Troponin 25.0 --> 25.9, repeat pending Clinically, patient denies CP Follow a.m. troponin (9) Dyslipidemia: Plan: Patient is no longer taking her atorvastatin 20 mg p.o. daily She reports that it has an awful taste and causes side effects, which she is unable to describe Crestor allergy listed as "myalgia" Will hold statins for now A.m. fasting lipid panel (10) Hypomagnesemia: Plan: Magnesium 1.6 on arrival Magnesium sulfate 3g ordered Repeat mag with a.m. labs Plan Disposition: Admit to PCU telemetry DNR/DNI Keep n.p.o. while on BiPAP then advance to AHA/T2DM diet as tolerated VTE PPx: SCDs, heparin 5000u SQ q12h Admission and Anticipated Discharge Date Admission Date: February 01, 2023 Subjective patient seen and examined, no new complaints today Review of Systems Review of Systems: All systems reviewed are negative, apart from the ones contained in the history. Physical Exam Physical Exam: The patient is awake, alert and oriented 3, well developed and well nourished, normocephalic and atraumatic, lying in bed and in no acute distress. HEENT--PERRL, EOMI, mucous membranes and oropharynx mildly dry Neck--supple. No JVD. No bruits. Thyroid normal, trachea midline, no adenopathy. Heart--normal S1 and S2. No murmurs, rubs or gallops. Lungs--clear bilaterally, no respiratory distress, no accessory muscle use. Abdomen--normal bowel sounds and soft. Mild epigastric and left sided abdominal pain Extremities--no cyanosis or clubbing. No edema. Dermatologic--normal skin turgor, normal color, no abnormal lymph nodes, no rash. Neurologic--cranial nerves II through XII grossly intact. Rheumatologic--normal range of motion. Psychiatric--normal affect. Results & Data Results & Data Vital Signs (Past 12 Hours) Vital Signs Temp Pulse Pulse Resp BP BP Pulse Ox 02/02/23 10:53 94 02/02/23 08:23 97.9 F 89 18 106/73 96 02/02/23 07:39 02/02/23 05:50 87 02/02/23 04:00 97.7 F 95 H 18 110/71 96 02/02/23 03:40 15 02/02/23 00:00 97.2 F L 97 H 16 97/56 L 100 02/01/23 23:50 98 H 17 97 O2 Del Method O2 Flow Rate FiO2 02/02/23 10:53 Room Air, Nasal Cannula 3 02/02/23 08:23 Nasal Cannula 3 02/02/23 07:39 Nasal Cannula 3 02/02/23 05:50 02/02/23 04:00 Nasal Cannula 3 02/02/23 03:40 40 02/02/23 00:00 BiPAP 40 02/01/23 23:50 40 PG Care Time/CCT Total # of Minutes Spent Total Time Spent with Patient: Total time spent is greater than 50% in coordination of care (as documented) at patient's floor/unit and/or counseling patient: Coding Level of Care Code 74313 SUB INP/OBS CARE 2/35MIN Diagnoses Acute on chronic systolic CHF (congestive heart failure) I50.23 SOB (shortness of breath) R06.02 Type 2 diabetes mellitus E11.9 Sleep apnea G47.30 Hypertension I10 Depression F32.9 GERD (gastroesophageal reflux disease) K21.9 Elevated troponin R79.89 Dyslipidemia E78.5 Hypomagnesemia E83.42 Time Spent (min) 35
--- NOTE | 2023-02-02 12:04 | Cardiology Consultation ---
Date of Consultation February 02, 2023 Assessment & Plan (1) Acute HFrEF (heart failure with reduced ejection fraction): Acute onset heart failure apparently due to newly diagnosed cardiomyopathy of uncertain etiology. She has multiple vascular risk factors and could have an ischemic cardiomyopathy, however global nature of wall motion abnormalities and absence of a discrete episode of chest discomfort suggests major myocardial infarction as less likely. This could be a representation of stress-induced cardiomyopathy (Takotsubo syndrome), but again she had no recent episodes of chest discomfort to suggest this. Viral or autoimmune cardiomyopathy is another consideration. Acute hypertensive event with resultant systolic dysfunction is another possibility. Given the severity of her cardiomyopathy, even though infarct or ischemia are not highly suggested, would recommend proceeding to cardiac catheterization to exclude a potentially correctable etiology (for example, occlusive coronary disease which would benefit from revascularization). Would recommend guideline directed medical therapy for cardiomyopathy with reassessment of LV systolic function after several months to determine whether device therapy is warranted. At this point, recommend: Carvedilol 3.125 mg twice daily, titrated upward as outpatient (initiate this rather than metoprolol given her recent hypertension). Discontinue losartan and initiate Entresto 49/51 mg twice daily, titrated upward as outpatient. Jardiance 10 mg daily. Spironolactone 12.5 mg daily, titrated to 25 mg daily as outpatient. She appears near euvolemic, could reduce furosemide to 40 mg daily and change to oral form. Depending upon catheterization results, decide on daily aspirin and statin. Recommend follow-up with Letitia Thompson PA-C in heart failure clinic. (2) Cardiomyopathy: See above. (3) Elevated troponin: Likely demand ischemia, relatively flat troponin curve and no chest pain or ECG evidence of acute cardiac event. Nonetheless, further evaluation with cardiac catheterization for etiology of cardiomyopathy will be helpful in categorizing etiology of troponin elevation. (4) SOB (shortness of breath): Presenting symptom, resolved. History of Present Illness Reason for Consultation: Acute CHF Requesting Physician: Iveth Irizarry MD Attending Physician: Iveth Irizarry MD History of Present Illness 72-year-old woman with history of vascular risk factors (diabetes mellitus, hypertension, dyslipidemia) but no known coronary disease who developed fairly abrupt onset dyspnea on exertion with orthopnea, presented to the ER with mild hypoxemia, hypertension, and pulmonary edema, echocardiogram showed that her ejection fraction had decreased from normal in April 2022 to 15-20% currently with newly seen severe global hypokinesis, moderate mitral regurgitation, and moderate pulmonary hypertension. She denied any recollection of chest pain when I spoke with her, however later she mention to a caregiver that she had neck and back pain about 2 months ago wh ich she had attributed to muscle sprain. For a period of months she had also noted some dyspnea walking up the stairs, but this was not profound. It was only this week that she had abrupt worsening of dyspnea with development of orthopnea prompting an ER visit. She had a good diuresis overnight (-1941 mL) and slept well, she had no somatic complaints at rest this morning. Telemetry showed sinus rhythm with PVCs, rate 80-90 bpm. Allergies Allergy/AdvReac Type Severity Reaction Status Date / Time latex Allergy Mild RASH Verified 10/14/22 07:47 dextromethorphan Allergy Unknown Unknown Verified 10/14/22 07:47 [From NyQuil] doxylamine [From NyQuil] Allergy Unknown Unknown Verified 10/14/22 07:47 pseudoephedrine [From NyQuil] Allergy Unknown Unknown Verified 10/14/22 07:47 bacitracin AdvReac Mild "change in Verified 10/14/22 07:47 skin color, itch" neomycin AdvReac Mild "change in Verified 10/14/22 07:47 skin color, itch" polymyxin B AdvReac Mild "change in Verified 10/14/22 07:47 skin color, itch" acetaminophen AdvReac Unknown COUGH/ANXIO Verified 10/14/22 07:47 US diphenhydramine AdvReac Unknown COUGH/ANXIO Verified 10/14/22 07:47 US ibuprofen AdvReac Unknown COUGH/ANXIO Verified 10/14/22 07:47 US naproxen AdvReac Unknown COUGH/ANXIO Verified 10/14/22 07:47 US crestor AdvReac myalgia Uncoded 12/29/22 18:22 Home Medications Medication Instructions Recorded Confirmed Type vitamin B complex (B 1 tab PO DAILY 10/07/18 02/01/23 History Complex-Vitamin B12 tablet) blood sugar diagnostic (Accu-Chek #100 ea 08/06/19 10/14/22 Rx Marleni Plus test strips) lancing device with lancets kit #100 ea 08/06/19 10/14/22 Rx (Accu-Chek Softclix Lancing Device+Lancets kit) desoximetasone 0.25 % topical 1 appln topical BID #60 grams 09/13/19 02/01/23 Rx ointment ferrous sulfate 325 mg (65 mg 325 mg PO DAILY 03/22/20 02/01/23 History iron) tablet (Feosol) multivitamin 1 tab PO DAILY 03/22/20 02/01/23 History ondansetron 4 mg disintegrating 4 mg PO Q6 PRN nausea and vomiting 05/26/21 02/01/23 Rx tablet #14 tabs hydrochlorothiazide 25 mg tablet 25 mg PO DAILY #90 tabs 04/02/22 02/01/23 Rx losartan 100 mg tablet 100 mg PO DAILY #90 tabs 04/02/22 02/01/23 Rx venlafaxine 75 mg capsule,extended 75 mg PO DAILY #90 caps 04/02/22 02/01/23 Rx release 24 hr bupropion HCl 300 mg 24 hr tablet, 300 mg PO QAM 90 days #90 tabs 10/03/22 02/01/23 Rx extended release (Wellbutrin XL) metformin 500 mg tablet 500 mg PO TIDWMEAL #270 tabs 10/17/22 02/01/23 Rx zolpidem 10 mg tablet (Ambien) 10 mg PO QPM PRN insomnia #90 tabs 10/17/22 02/01/23 Rx mometasone 0.1 % topical cream 1 applic topical DAILY #45 grams 11/14/22 02/01/23 Rx potassium chloride 10 mEq 20 meq (2 x 10 mEq) PO DAILY #180 11/14/22 02/01/23 Rx tablet,extended release(part/cryst) tabs omeprazole 40 mg capsule,delayed 40 mg PO DAILY #90 caps 11/18/22 02/01/23 Rx release venlafaxine 150 mg 150 mg PO DAILY #90 caps 12/02/22 02/01/23 Rx capsule,extended release 24 hr benzonatate 100 mg capsule 100 mg PO TID PRN cough #30 caps 12/19/22 02/01/23 Rx sodium sul 1.479 gram-potas ch See Rx Instructions PO .COMPLEX 01/24/23 02/01/23 Rx 0.188 gram-magnes sul 0.225 gram #24 tabs tablet (Sutab) Patient History Medical History (Updated 02/02/23 @ 11:47 by Perez Nicholson MD) Community acquired pneumonia Type 2 diabetes mellitus Sleep apnea Insomnia Hypertension Esophageal reflux Hemorrhoids Eczema Atopic dermatitis Anxiety Surgical History S/P colonoscopy (03/06/11) Sigmoid diverticulosis, otherwise normal. Recheck 10 years Family History Father Asthma Diabetes Hepatic disorder Sister Carotid artery stenosis Diabetes Mother Stroke Diabetes Brother Diabetes Denies family history of Ovarian cancer Prostate cancer Myocardial infarction Breast cancer Colorectal cancer Social History Smoking Status: Never smoker Second Hand Exposure: No; Do You Dip or Chew Tobacco: No; Hx Alcohol Use: No Hx Substance Use: No Preferred Language: Telugu Communication Ability: Effective Visual Impairment: No Limitations Hearing Ability: Normal Casing Inspector Required: No Beliefs That Will Affect Care: None marital status: Current Living Situation: Spouse current occupational status: employed current occupation: Homemaker Other Information That Helps Us Care for You: No Feels Safe at Home: Yes Safety Concerns: Feels Safe At This Time Diet: regular caffeine: Yes (Not often ) Dental Care, Regularly: Yes Seatbelt Use: always Sunscreen Use: No Assistive Devices: CPAP and Glasses Physical Exam Constitutional: No distress. BP normotensive (106/73 mmHg). Pulse 90 bpm and regular without ectopy. Respirations 18 and unlabored. Skin: no ecchymoses or generalized lesions. HEENT: unremarkable. Neck: JVP just above the clavicle at 90 degrees, no carotid bruits. Lungs: Mild dullness at the bases with rare crackles, generally clear with no wheezing or accessory muscle use. Cardiac: regular rhythm, normal S1-2, 2/6 apical holosystolic murmur which is nonradiating, no diastolic murmur. Abdomen: benign. Extremities: no edema, pulses intact. Neurologic: normal affect and conversation, nonfocal. Results & Data Laboratory Results Serial troponins 25, 25, 77, 75, 63, 42. BNP 729 (no baseline). Normal CBC. Normal electrolytes, BUN 16, creatinine 0.62. Glucose initially 380, 129 today. Hemoglobin A1c 6.4% October 2022. Magnesium 1.6 on admission, 2.3 today. Cholesterol 163, HDL 55, LDL 83, triglycerides 125. Diagnostic Findings Initial ECG showed sinus tachycardia 123 bpm and was unremarkable, compared with ECG of 02/20/2021, PVCs no longer present, otherwise no significant change. Echocardiogram as noted in HPI. Chest x-ray on admission showed cardiomegaly with pulmonary edema and trace bilateral pleural effusions. Chest CT showed no evidence of pulmonary embolism but did show moderate pulmonary edema with moderate bilateral effusions and a right apical density. PG Care Time/CCT Total # of Minutes Spent Total Time Spent with Patient: Total time spent is greater than 50% in coordination of care (as documented) at patient's floor/unit and/or counseling patient: Coding Level of Care Code 15231 IN/OBS CONSULT LVL 5,80M Diagnoses Acute HFrEF (heart failure with reduced ejection fraction) I50.21 Cardiomyopathy I42.9 Elevated troponin R79.89 SOB (shortness of breath) R06.02
--- NOTE | 2023-02-02 13:50 | Pharmacy Report ---
Pharmacy Glycemic Short Note 2 - Date of Service February 02, 2023 - Glycemic Short BSG Results (Last 24 hours): 02/01/23 02/01/23 02/01/23 14:09 17:05 19:49 Glucose POC Glucose 194 H 125 H 133 H 02/02/23 02/02/23 02/02/23 03:26 08:04 08:04 Glucose 129 H POC Glucose 141 H 141 H 02/02/23 12:06 Glucose POC Glucose 163 H OUTPATIENT ANTIDIABETIC REGIMEN: * Metformin 500 mg PO TIDM * HbA1c pending ASSESSMENT: 02/02: * Madison received 21 units of insulin yesterday following admission, 20 basal + 1 bolus. BSGs were: [phone] mg/dL. * Fasting BSG was 141 mg/dL today. Will start scheduled basal insulin today based on weight/stress of 2. No changes to Novolog. 02/01: * 72 yo F admitted on 02/01/23 secondary to shortness of breath. Pharmacy has been consulted to assist with inpatient glycemic management. Patient is a Type 2 diabetic as an outpatient. Please refer to outpatient regimen and most recent HbA1c above. * BSG elevated this AM at 391 mg/dL. Patient received 6 units of Novolog in the ED prior to transferring to the floor. Recheck was 194 mg/dL which patient was given 5 units of Novolog to correct and cover lunch carbs. * Will give a one time dose of Lantus 20 units. Reassess basal in the morning. PLAN FOR INPATIENT GLYCEMIC CONTROL: * Hold outpatient oral diabetes medications * Basal insulin * Lantus 15 units SC daily * Bolus insulin * NovoLog per scale ACHS or Q6hrs while NPO * Goal Range: Low 110 mg/dL - High 140 mg/dL * Correction Factor: 25 mg/dL/unit * Nutritional / Prandial insulin per carb ratio of 1 unit per 8 grams CHO consumed
[2023-02-02] MEDS: ZOLPIDEM TARTRATE 10 MG TAB PO PRN (21:11)
[2023-02-03 07:31] LABS: Basophils # (auto) 0.03 K/uL (0.00-0.20); Basophils % (auto) 0.3 %; Eosinophils # (auto) 0.25 K/uL (0.00-0.50); Eosinophils % (auto) 2.9 %; Hematocrit (blood only) 39.8 % (37.0-47.0); Hemoglobin 13.2 g/dl (12.0-16.0); Immature Granulocytes # (auto) 0.01 K/uL (0.01-0.20); Immature Granulocytes % (auto) 0.1 %; Lymphocytes # (auto) 2.89 K/uL (1.20-3.40); Lymphocytes % (auto) 33.2 %; Mean Corpuscular Hgb Conc 33.2 g/dL (32.0-36.0); Mean Corpuscular Volume 90.5 fL (80.0-100.0); Mean Platelet Volume 9.9 fL (9.4-12.4); Monocytes # (auto) 0.59 K/uL (0.11-0.59); Monocytes % (auto) 6.8 %; Neutrophils # (auto) 4.93 K/uL (1.40-6.50); Neutrophils % (auto) 56.7 %; Platelet Count 283 K/uL (130-400); RDW Coefficient of Variation 14.6 % (11.5-14.5); RDW Standard Deviation 47.8 fL (36.4-46.3)
[2023-02-03 07:45] LABS: Estimated Average Glucose 171 mg/dl; Hemoglobin A1C 7.6 % (4.5-5.6)
[2023-02-03 07:58] LABS: BUN Creatinine Ratio 33.3 (10-20); Calcium 9.2 mg/dl (8.6-10.3); Creatinine Clr Calc Pharmacy 82.6 ml/min; Est GFR (African American) 104.8 ml/min; Est GFR (Non-African American) 90.4 ml/min
[2023-02-03] MEDS: INSULIN ASPART PER UNIT CHARGE SC SCH ×4 (08:25→21:12)
[2023-02-03] MEDS: FUROSEMIDE 40 MG/4 ML VIAL IV SCH ×2 (08:29→17:23)
[2023-02-03] MEDS: FERROUS SULFATE 325 MG TAB PO SCH (08:30)
[2023-02-03] MEDS: LOSARTAN POTASSIUM 50 MG TAB PO SCH (08:30)
[2023-02-03] MEDS: buPROPion XL 300 MG TABCR PO SCH (08:30)
[2023-02-03] MEDS: VENLAFAXINE HCL XR 150 MG CAPXR PO SCH (08:31)
[2023-02-03] MEDS: PANTOprazole 40 MG TAB PO SCH (08:31)
[2023-02-03] MEDS: VENLAFAXINE HCL XR 75 MG CAPXR PO SCH (08:31)
[2023-02-03] MEDS: MOMETASONE FUROATE 0.1% CR 15 GM TUBE EXT SCH (08:32)
[2023-02-03] MEDS: FAMOTIDINE 20 MG in SYRINGE 3 ML IV SCH (08:34)
[2023-02-03] MEDS ORDERED: LANTUS PER UNIT CHARGE SQ SCH ×2 (09:00→16:30)
[2023-02-03] MEDS ORDERED: NITROGLYCERIN/D5W 100MCG/ML 20ML SYR ONE (11:18)
[2023-02-03] MEDS ORDERED: HEPARIN (PORCINE) 1000 UNIT/ML 10 ML (CATH LAB USE ONLY) ONE (11:18)
[2023-02-03] MEDS ORDERED: MIDAZOLAM HCL 1 MG/ML 2ML VIAL ONE (11:18)
[2023-02-03] MEDS ORDERED: niCARdipine HCL INJ 2.5 MG/ML 10 ML AMP ONE (11:18)
[2023-02-03] MEDS ORDERED: fentaNYL citrate PF 100 MCG/2 ML VIAL ONE (11:18)
--- NOTE | 2023-02-03 11:32 | Pre Anesthesia Assessment ---
Date of Service February 03, 2023 Pre Sedation Assessment Vital Signs Temp Pulse Pulse Resp BP BP Pulse Ox 02/03/23 11:07 36.7 C 98 H 18 129/70 98 02/03/23 07:59 36.6 C 85 18 103/62 94 02/03/23 03:38 36.9 C 96 H 18 114/71 95 02/03/23 03:10 17 02/02/23 22:45 89 18 96 02/02/23 22:00 98 H 02/02/23 22:00 36.5 C 92 H 18 110/78 98 02/02/23 19:30 37 C 100 H 18 105/58 L 93 02/02/23 16:31 72 105/70 93 02/02/23 15:34 36.5 C 106 H 18 96/63 L 96 02/02/23 14:10 105 H 02/02/23 12:18 36.6 C 98 H 18 117/77 94 O2 Del Method O2 Flow Rate FiO2 02/03/23 11:07 Room Air 02/03/23 07:59 Room Air 02/03/23 03:38 CPAP 02/03/23 03:10 40 02/02/23 22:45 40 02/02/23 22:00 02/02/23 22:00 CPAP 02/02/23 19:30 Room Air 02/02/23 16:31 Room Air 02/02/23 15:34 Nasal Cannula 3 02/02/23 14:10 02/02/23 12:18 Nasal Cannula 3 Cardiovascular + tachycardic Respiratory + respiratory effort normal Pre-Sedation Airway Assessment Smoking Status: Never smoker Hx Sleep Apnea: Yes Hx Difficult Intubation: No Short, Thick Neck: No Thyromental Distance: > or= 3.5 Finger Breadths Oral Cavity: + WNL Mallampati Class: III ASA: ASA3 Procedure Planning Contraindications for Sedation: none Current Medications Reviewed: Yes Notes The planned sedation has been discussed with the patient. Informed Consent was obtained. I have identified the patient, determined the appropriateness of sedation and have assessed the patient immediately prior to the procedure. All medicine(s) and interventions are by my order.
[2023-02-03] MEDS ORDERED: OPTIRAY 350 ONE (11:48)
--- NOTE | 2023-02-03 12:15 | Cardiac Catheterization ---
[facility] Data: Assistant Analyst Cardiac Status Clinical evaluation leading to the procedure CAD Presenation: Sx unlikely to be ischemic Diagnostic Physicians Name: Mervin Corbin MD Closure Device Recommendations: Medical Therapy and/or Counseling Cardiac Cath Procedure Full Procedure Date February 03, 2023 Pre-Procedure Diagnosis Pre-Procedure Diagnosis: Cardiomyopathy AUC Score AUC Score: 7 Post-Procedure Diagnosis Post-Procedure Diagnosis: Normal Coronary Arteries Procedure(s) Performed Procedure(s) Performed: Coronary Angiography and Left Heart Cath Block Breaker Operator Mervin Corbin MD Wash Box Operator(s) none Estimated Blood Loss Estimated Blood Loss: 5cc Medication(s) Medication(s): Fentanyl, Heparin, Lidocaine 1%, Nicardipine, Nitroglycerin and Versed Summary of Findings Procedure performed: Left heart catheterization, selective coronary angiography Staff commutator tester: Mervin Corbin MD Indication: Patient is a 72-year-old woman who presented with symptoms of heart failure and was discovered to have severe cardiomyopathy Procedure in detail: The patient was informed of the risks benefits and alternatives to the intended procedure, he understood such and wished to proceed. He was taken to the cardiac catheterization suite in a fasting state. Conscious sedation was administered per protocol and the patient was monitored electrocardiographically throughout today's procedure. The right wrist area was prepped and draped in usual sterile fashion. This area was anesthetized using subcutaneous administration of a lidocaine solution. The right radial artery was then accessed using Seldinger technique, and a arterial sheath was placed at this site over a guidewire. The sheath was used to facilitate passage of the cardiac catheter for coronary angiography and left heart catheterization. Coronary angiogram was then obtained in multiple orthogonal views prior to removal of the catheter. At the conclusion of the procedure the sheath was removed and hemostasis was achieved at the access site using manual pressure. The patient tolerated procedure well, there were no immediate complications. Equipment used: 5 [place] tiger 4 Findings: Coronary angiography Left main: Left main was normal in size and caliber bifurcated normally into the left anterior descending left circumflex artery Left anterior descending: Left anterior descending was large transapical vessel. It produced a large 1st and a moderate 2nd diagonal branch. No disease in the left anterior descending Left circumflex: Left circumflex was nondominant vessel. It produced a medium- sized 1st OM and a small 2nd OM branch. No disease in this vessel Right coronary: Right coronary was dominant vessel. There is approximately 20% focal stenosis in its proximal portion, possibly spasm. No other disease Impression: Right dominant coronary system No significant obstructive coronary disease Normal left ventricular filling pressure Hemodynamics Rest Ao:: 92/43 mm of mercury Final Ao: 91/53 mm of mercury LV: 80/4 mm of mercury Left ventricular end-diastolic pressure 12 mm of mercury Recommendations Recommendations: Medical Therapy and/or Counseling Specimens Specimens: None Radiation Exposure (mGy) 581 Contrast (mls) 25 Procedural Complication(s) None Disposition PCU I attest to the content of the Intraoperative Record and any orders documented therein. Any exceptions are noted below. [facility] Card Cath Procedure Codes Cardiac Catheterization Procedure 1: Cardiovascular Cath Procedures: 22920 Coronaries and LHC (+/-LV) Moderate Sedation Procedure 1: Sedation/Anesthesia: 11900 Mod Sedation by the same physician;Init15 Min Child Age 5 & Up Procedure 2: Sedation/Anesthesia: 17080 Mod Sedation by the same physician; Ea [id number] Minutes PG Care Time/CCT Total # of Minutes Spent Total Time Spent with Patient: Total time spent is greater than 50% in coordination of care (as documented) at patient's floor/unit and/or counseling patient:
--- NOTE | 2023-02-03 12:16 | Post Anesthesia Assessment ---
Date of Service February 03, 2023 Post Sedation Assessment Vital Signs Temp Pulse Pulse Resp BP BP Pulse Ox 02/03/23 11:07 36.7 C 98 H 18 129/70 98 02/03/23 07:59 36.6 C 85 18 103/62 94 02/03/23 03:38 36.9 C 96 H 18 114/71 95 02/03/23 03:10 17 02/02/23 22:45 89 18 96 02/02/23 22:00 98 H 02/02/23 22:00 36.5 C 92 H 18 110/78 98 02/02/23 19:30 37 C 100 H 18 105/58 L 93 02/02/23 16:31 72 105/70 93 02/02/23 15:34 36.5 C 106 H 18 96/63 L 96 02/02/23 14:10 105 H 02/02/23 12:18 36.6 C 98 H 18 117/77 94 O2 Del Method O2 Flow Rate FiO2 02/03/23 11:07 Room Air 02/03/23 07:59 Room Air 02/03/23 03:38 CPAP 02/03/23 03:10 40 02/02/23 22:45 40 02/02/23 22:00 02/02/23 22:00 CPAP 02/02/23 19:30 Room Air 02/02/23 16:31 Room Air 02/02/23 15:34 Nasal Cannula 3 02/02/23 14:10 02/02/23 12:18 Nasal Cannula 3 Recovery Score Activity: Moves 4 extremities Respiration: Deep Breath/Cough Circulation: +/-20% PreAnes Value Consciousness: Fully Awake Oxygen Saturation: O2 needed for >90% Discharge Sedation Level of Care: Fast Track Phase II Post Sedation Plan On clinical assessment, the patient appears to have tolerated the sedation without complications. Patient is recovering as anticipated. Patient will continue to be monitored by nursing and may be discharged when sedation discharge criteria are met per below protocol. Upon Completions of procedure up to 15 minutes continue every 5 minute vital signs and the P.A.R. score; then discharge to a Phase I or Fast Track to Phase II per the following guidelines: * Discharge Patient to appropriate Phase II area if PAR is 8 or greater or return to pre- procedure baseline. The post - procedure orders will be as directed. * If PAR score is less than 8 or not return to pre-procedure baseline then patient will follow Phase I monitoring till PAR is reached for Phase II. The Phase I may be done in procedure room or may call to secure a Phase I area. * If naloxone or flumazenil are used for reversal, hold in Phase I for continued monitoring from when last reversal dose was given for a minimum of 60 minutes or longer pending the nurse and/or physician discretion of patient condition before discharge to Phase II. Please call the Sedation Physician to re-evaluate and complete post-note for discharge to Phase II area. Do NOT discharge from procedure sedation or Phase 1 until post- sedation evaluation note is complete by procedure /sedation MD Sedation Discharge Instructions to be given to the patient at discharge to home.
[2023-02-03] MEDS: POTASSIUM CHLORIDE CRTAB 20 MEQ TABCR PO SCH ×2 (13:39→21:13)
[2023-02-03] MEDS: HEPARIN SOD 5,000 UNIT/0.5 ML VIAL SQ SCH ×2 (13:40→21:11)
--- NOTE | 2023-02-03 14:29 | Pharmacy Report ---
Pharmacy Glycemic Short Note 2 - Date of Service February 03, 2023 - Glycemic Short BSG Results (Last 24 hours): 02/02/23 02/02/23 02/03/23 16:51 20:15 07:00 Glucose 143 H POC Glucose 95 93 02/03/23 02/03/23 07:48 13:37 Glucose POC Glucose 145 H 150 H OUTPATIENT ANTIDIABETIC REGIMEN: * Metformin 500 mg PO TIDM * HbA1c 7.6% (02/02/23) ASSESSMENT: 02/03: * Madison received 35 units of insulin yesterday (15 were basal) * Fasting BSG this AM slightly above goal range, 50% of basal insulin given this AM due to patient being NPO for cardiac catheterization. Will give the remaining basal with dinner and increase slightly by 10% * Goal range increased slightly and correction factor loosened due to BSGs slightly below goal yesterday evening. 02/02: * Madison received 21 units of insulin yesterday following admission, 20 basal + 1 bolus. BSGs were: 696-026-512-133 mg/dL. * Fasting BSG was 141 mg/dL today. Will start scheduled basal insulin today based on weight/stress of 2. No changes to Novolog. 02/01: * 72 yo F admitted on 02/01/23 secondary to shortness of breath. Pharmacy has been consulted to assist with inpatient glycemic management. Patient is a Type 2 diabetic as an outpatient. Please refer to outpatient regimen and most recent HbA1c above. * BSG elevated this AM at 391 mg/dL. Patient received 6 units of Novolog in the ED prior to transferring to the floor. Recheck was 194 mg/dL which patient was given 5 units of Novolog to correct and cover lunch carbs. * Will give a one time dose of Lantus 20 units. Reassess basal in the morning. PLAN FOR INPATIENT GLYCEMIC CONTROL: * Hold outpatient oral diabetes medications * Basal insulin * Lantus 17 units SC daily (7 units this AM and 10 units with dinner today) * Bolus insulin * NovoLog per scale ACHS or Q6hrs while NPO * Goal Range: Low 110 mg/dL - High 150 mg/dL * Correction Factor: 30 mg/dL/unit * Nutritional / Prandial insulin per carb ratio of 1 unit per 8 grams CHO consumed
--- NOTE | 2023-02-03 17:18 | Cardiology Progress Note ---
Date of Service February 03, 2023 Assessment & Plan (1) Acute HFrEF (heart failure with reduced ejection fraction): Plan: Symptoms of pulmonary vascular congestion appear to have resolved. Normal left ventricular end-diastolic pressure on catheterization. Normal coronaries. Any allergy of cardiomyopathy is nonischemic Agree with starting low-dose carvedilol 3.125 mg twice daily Jardiance 10 mg daily Switch losartan to Entresto continue low-dose oral diuresis as an outpatient Recommend follow-up with Letitia Thompson PA-C in heart failure clinic. (2) Cardiomyopathy: Plan: See above. (3) Elevated troponin: Plan: Likely demand ischemia, relatively flat troponin curve and no chest pain or ECG evidence of acute cardiac event. Nonetheless, further evaluation with cardiac catheterization for etiology of cardiomyopathy will be helpful in categorizing etiology of troponin elevation. (4) SOB (shortness of breath): Plan: Presenting symptom, resolved. Admission and Anticipated Discharge Date Admission Date: February 01, 2023 Subjective This morning the patient reported resolution of her breathing difficulty. No chest pain. Nervous regarding the cardiac catheterization today. Review of Systems Review of Systems: Per HPI Physical Exam Physical Exam: She is alert and oriented x3. Mood affect appear normal. She answered all ques tions appropriately. HEENT: Sclerae are anicteric. Pupils are equal and reactive to light and accommodation. Extraocular movements were intact. Neuro: Cranial nerves intact Lungs: Lungs are clear to auscultation bilaterally. There are no rales wheezes or rhonchi. She has normal respiratory effort without use of accessory muscles. There is normal pulmonary excursion. Cardiac: The rhythm was regular. S1 and S2 were normal. There are no murmurs on examination. The PMI was not markedly displaced on palpation. Extremities: Patient has bilateral radial pulses that are equal in intensity. There is no evidence cyanosis or clubbing. There was no evidence of significant peripheral edema bilaterally. Skin: There are no rashes noted on examination today. Results & Data Vital Signs (Past 12 Hours) Vital Signs Temp Pulse Resp BP BP Pulse Ox O2 Del Method 02/03/23 16:31 36.8 C 98 H 18 107/74 95 Room Air 02/03/23 16:00 36.8 C 100 H 18 101/66 98 Room Air 02/03/23 15:31 36.8 C 100 H 18 101/66 98 Room Air 02/03/23 14:31 36.8 C 94 H 18 102/69 97 Room Air 02/03/23 13:31 36.8 C 99 H 18 127/76 95 Room Air 02/03/23 12:45 90 18 97/52 L 95 Room Air 02/03/23 12:30 91 H 18 95/47 L 95 Room Air 02/03/23 12:20 90 18 86/50 L 95 Room Air 02/03/23 11:07 36.7 C 98 H 18 129/70 98 Room Air 02/03/23 07:59 36.6 C 85 18 103/62 94 Room Air Laboratory Results Abnormal Lab Results 02/02/23 02/02/23 02/03/23 03:26 20:15 07:00 WBC 8.70 RBC 4.40 Hgb 13.2 Hct 39.8 MCV 90.5 MCH 30.0 MCHC 33.2 RDW Std Deviation 47.8 H RDW Coeff of Lashae 14.6 H Plt Count 283 MPV 9.9 Immature Gran % (Auto) 0.1 Neut % (Auto) 56.7 Lymph % (Auto) 33.2 [place] % (Auto) 6.8 Eos % (Auto) 2.9 Baso % (Auto) 0.3 Neut # (Auto) 4.93 Lymph # (Auto) 2.89 [place] # (Auto) 0.59 Eos # (Auto) 0.25 Baso # (Auto) 0.03 Immature Gran # (Auto) 0.01 Sodium 137 Potassium 4.0 Chloride 102 Carbon Dioxide 25 Anion Gap 10 BUN 20 Creatinine 0.60 Est Cr Clr Drug Dosing 82.6 Est GFR ( Amer) 104.8 Est GFR (Non-Af Amer) 90.4 BUN/Creatinine Ratio 33.3 H Glucose 143 H POC Glucose 93 Estimat Average Glucose 171 Hemoglobin A1c 7.6 H Calcium 9.2 02/03/23 02/03/23 02/03/23 07:48 13:37 16:24 WBC RBC Hgb Hct MCV MCH MCHC RDW Std Deviation RDW Coeff of Lashae Plt Count MPV Immature Gran % (Auto) Neut % (Auto) Lymph % (Auto) [place] % (Auto) Eos % (Auto) Baso % (Auto) Neut # (Auto) Lymph # (Auto) [place] # (Auto) Eos # (Auto) Baso # (Auto) Immature Gran # (Auto) Sodium Potassium Chloride Carbon Dioxide Anion Gap BUN Creatinine Est Cr Clr Drug Dosing Est GFR ( Amer) Est GFR (Non-Af Amer) BUN/Creatinine Ratio Glucose POC Glucose 145 H 150 H 158 H Estimat Average Glucose Hemoglobin A1c Calcium Diagnostic Findings Cardiac catheterization performed 02/03/2023: Normal coronaries. Normal LVEDP. Echocardiogram dated 02/01/2023: Severely reduced LV systolic function with ejection fraction 15-20%. Mildly dilated left ventricle. Severe global hypokinesis. Moderate mitral regurgitation. PG Care Time/CCT Total # of Minutes Spent Total Time Spent with Patient: Total time spent is greater than 50% in coordination of care (as documented) at patient's floor/unit and/or counseling patient: Coding Level of Care Code 74572 SUB INP/OBS CARE 2/35MIN Diagnoses Acute HFrEF (heart failure with reduced ejection fraction) I50.21 Cardiomyopathy I42.9 Elevated troponin R79.89 SOB (shortness of breath) R06.02
[2023-02-03] MEDS: EMPAGLIFLOZIN 10 MG TAB PO SCH (17:23)
[2023-02-03] MEDS: carvediloL 3.125 MG TAB PO SCH (17:23)
--- NOTE | 2023-02-03 17:40 | XRay Report ---
SINGLE VIEW CHEST CLINICAL HISTORY: Congestive heart failure. FINDINGS: An AP, portable, upright chest radiograph is compared to chest x-ray and chest CT dated . The examination is degraded by portable technique and patient rotation. The heart is enlarg ed. Pulmonary vascular congestion has improved from previous. There are small pleural effusions with dependent consolidation. No pneumothorax is seen. The skeletal structures are osteopenic. The bony th orax is grossly intact. IMPRESSION: 1. Cardiomegaly. Pulmonary vascular congestion has improved from previous. 2. Small pleural effusions with dependent consolidation. ACT 112: Negative or not required by law. Electronically signed by: Sheldon George M.D. 02/03/2023 5:39 PM
--- NOTE | 2023-02-03 18:05 | Hospitalist Progress Note ---
Date of Service February 03, 2023 Assessment & Plan (1) Acute on chronic systolic CHF (congestive heart failure): Plan: Improved with intravenous Lasix diuresis. Chest x-ray done today, February 03, looks better. She is on room air. She is now on Coreg, Entresto, Jardiance, and spironolactone. Cardiology consultation and recommendations appreciated. Telemetry. Cardiac catheterization completed today, February 03, was negative for critical coronary stenoses. (2) SOB (shortness of breath): Plan: Due to CHF. She is now on room air. Supportive care. Chest CTA revealed no pulmonary embolus. BioFire negative. Procalcitonin WNL (3) Type 2 diabetes mellitus: Plan: Last A1c 6.4% on 10/09/2022. Metformin on hold. Glucose 143 this morning. Sliding scale insulin coverage as needed. ADA diet (4) Sleep apnea: Plan: Patient normally uses CPAP at night. Stable (5) Hypertension: Plan: Stable. Medications have been changed by cardiology. Will follow (6) Depression: Plan: Stable. Continue venlafaxine (7) GERD (gastroesophageal reflux disease): Plan: Currently on famotidine and Protonix. (8) Elevated troponin: Plan: Minimal. No evidence of acute coronary syndrome (9) Dyslipidemia: Plan: Patient is no longer taking her atorvastatin 20 mg p.o. daily. She reports that it has an awful taste and causes side effects, which she is unable to describe. Crestor allergy listed as "myalgia". Will hold statins for now (10) Hypomagnesemia: Plan: Corrected. Serial labs Plan Anticipate eventual discharge to home. Admission and Anticipated Discharge Date Admission Date: February 01, 2023 Subjective Alert and oriented. Nursing staff just informed me that she is somewhat tachycardic. Stat EKG is ordered. Nurses instructed to notify cardiology. Left heart catheterization completed earlier today, February 03. No critical coronary artery disease noted. She has severe global left ventricular systolic dysfunction with ejection fraction 15%. She is now on Coreg, Entresto, Jardiance, spironolactone, and Lasix. Portable chest x-ray done today, February 03, looks better. She is on room air. Review of Systems 2 Review of Systems: Constitutional-no fever or chills ENT-no blurred vision, no double vision, no epistaxis, no sore throat Respiratory-no cough, no wheezing, no shortness of breath Cardiac-no palpitations, no chest pain, no syncope GI-no nausea, vomiting, diarrhea, melena, hematochezia -no urinary retention, no urinary incontinence, no dysuria, no hematuria Musculoskeletal-no joint pain, no muscle tenderness Skin-no bruising, no rashes, no pruritus Neuro-no isolated weakness, no paresthesia, no weakness Psych-no depression, no anxiety Physical Exam 2 Physical Exam: General-alert and oriented x3, no fevers, no chills HEENT-head atraumatic and normocephalic, pupils equal and reactive to light, extraocular muscles intact Neck-no lymphadenopathy or thyromegaly, trachea midline Chest-clear to auscultation percussion. No rales wheezing or rhonchi Cardiac-irregular rhythm with controlled rate, normal S1 and S2 (earlier today) Abdomen-normal bowel sounds, nontender, no hepatosplenomegaly Extremities-no cyanosis, clubbing, or edema Neuro-cranial nerves II through XII intact, motor and sensory function within normal limits, strength symmetrical, no focal deficits Psych-normal affect, normal mood Results & Data Results & Data Vital Signs (Past 12 Hours) Vital Signs Temp Pulse Resp BP BP Pulse Ox O2 Del Method 02/03/23 17:31 36.8 C 116 H 18 108/70 98 Room Air 02/03/23 16:31 36.8 C 98 H 18 107/74 95 Room Air 02/03/23 16:00 36.8 C 100 H 18 101/66 98 Room Air 02/03/23 15:31 36.8 C 100 H 18 101/66 98 Room Air 02/03/23 14:31 36.8 C 94 H 18 102/69 97 Room Air 02/03/23 13:31 36.8 C 99 H 18 127/76 95 Room Air 02/03/23 12:45 90 18 97/52 L 95 Room Air 02/03/23 12:30 91 H 18 95/47 L 95 Room Air 02/03/23 12:20 90 18 86/50 L 95 Room Air 02/03/23 11:07 36.7 C 98 H 18 129/70 98 Room Air 02/03/23 07:59 36.6 C 85 18 103/62 94 Room Air Laboratory Results 02/03/23 07:00 02/03/23 07:00 PG Care Time/CCT Total # of Minutes Spent Total Time Spent with Patient: Total time spent is greater than 50% in coordination of care (as documented) at patient's floor/unit and/or counseling patient: Coding Level of Care Code 35873 SUB INP/OBS CARE 3/50MIN Diagnoses Acute on chronic systolic CHF (congestive heart failure) I50.23 SOB (shortness of breath) R06.02 Type 2 diabetes mellitus E11.9 Sleep apnea G47.30 Hypertension I10 Depression F32.9 GERD (gastroesophageal reflux disease) K21.9 Elevated troponin R79.89 Dyslipidemia E78.5 Hypomagnesemia E83.42
[2023-02-03] MEDS ORDERED: METOPROLOL TARTRATE 1 MG/ML VIAL IV PRN (18:53)
[2023-02-03] MEDS ORDERED: SODIUM CHLORIDE 0.9% 250 ML IV ONE (19:14)
[2023-02-03] MEDS: VALSARTAN/SACUBITRIL 26/24MG TAB PO SCH (21:13)
[2023-02-04] MEDS: ZOLPIDEM TARTRATE 10 MG TAB PO PRN (01:00)
[2023-02-04 05:43] LABS: Basophils # (auto) 0.05 K/uL (0.00-0.20); Basophils % (auto) 0.6 %; Eosinophils # (auto) 0.23 K/uL (0.00-0.50); Eosinophils % (auto) 2.6 %; Hematocrit (blood only) 40.4 % (37.0-47.0); Hemoglobin 13.7 g/dl (12.0-16.0); Immature Granulocytes # (auto) 0.02 K/uL (0.01-0.20); Immature Granulocytes % (auto) 0.2 %; Lymphocytes # (auto) 3.36 K/uL (1.20-3.40); Lymphocytes % (auto) 37.5 %; Mean Corpuscular Hemoglobin 30.6 pg (25.0-34.0); Mean Corpuscular Hgb Conc 33.9 g/dL (32.0-36.0); Mean Corpuscular Volume 90.4 fL (80.0-100.0); Mean Platelet Volume 9.7 fL (9.4-12.4); Monocytes # (auto) 0.61 K/uL (0.11-0.59); Monocytes % (auto) 6.8 %; Neutrophils # (auto) 4.69 K/uL (1.40-6.50); Neutrophils % (auto) 52.3 %; Platelet Count 268 K/uL (130-400); RDW Coefficient of Variation 14.6 % (11.5-14.5); RDW Standard Deviation 48.1 fL (36.4-46.3); Red Blood Count 4.47 M/uL (4.20-5.40); White Blood Count 8.96 K/ul (4.8-10.8)
[2023-02-04 06:01] LABS: BUN Creatinine Ratio 34.2 (10-20); Calcium 8.7 mg/dl (8.6-10.3); Creatinine Clr Calc Pharmacy 67.9 ml/min; Est GFR (African American) 94.7 ml/min; Est GFR (Non-African American) 81.7 ml/min
[2023-02-04] MEDS: INSULIN ASPART PER UNIT CHARGE SC SCH ×2 (08:45→12:46)
[2023-02-04] MEDS: buPROPion XL 300 MG TABCR PO SCH (08:48)
[2023-02-04] MEDS: carvediloL 3.125 MG TAB PO SCH (08:48)
[2023-02-04] MEDS: FERROUS SULFATE 325 MG TAB PO SCH (08:49)
[2023-02-04] MEDS: EMPAGLIFLOZIN 10 MG TAB PO SCH (08:49)
[2023-02-04] MEDS: HEPARIN SOD 5,000 UNIT/0.5 ML VIAL SQ SCH (08:49)
[2023-02-04] MEDS: PANTOprazole 40 MG TAB PO SCH (08:50)
[2023-02-04] MEDS: VENLAFAXINE HCL XR 150 MG CAPXR PO SCH (08:50)
[2023-02-04] MEDS: MOMETASONE FUROATE 0.1% CR 15 GM TUBE EXT SCH (08:51)
[2023-02-04] MEDS: POTASSIUM CHLORIDE CRTAB 20 MEQ TABCR PO SCH (08:51)
[2023-02-04] MEDS: VALSARTAN/SACUBITRIL 26/24MG TAB PO SCH (08:51)
[2023-02-04] MEDS: VENLAFAXINE HCL XR 75 MG CAPXR PO SCH (08:52)
[2023-02-04] MEDS ORDERED: FUROSEMIDE 40 MG/4 ML VIAL IV SCH (09:00)
[2023-02-04] MEDS ORDERED: LANTUS PER UNIT CHARGE SQ SCH (09:00)
[2023-02-04] MEDS: FAMOTIDINE 20 MG in SYRINGE 3 ML IV SCH (09:01)
--- NOTE | 2023-02-04 09:21 | XRay Report ---
SINGLE VIEW CHEST CLINICAL HISTORY: Congestive heart failure. FINDINGS: An AP, portable, upright chest radiograph is compared to study dated 02/03/2023 and correla singh with chest CT dated 02/01/2023. The heart is enlarged. There is pulmonary vascular congestion. Th ere are small pleural effusions with dependent consolidation No pneumothorax is seen. The skeletal st ructures are osteopenic. The bony thorax is grossly intact. IMPRESSION: 1. Cardiomegaly with evidence of congestive failure. 2. Small pleural effusions with dependent consolidation. ACT 112: Negative or not required by law. Electronically signed by: Sheldon George M.D. 02/04/2023 9:20 AM
--- NOTE | 2023-02-04 13:02 | Discharge Summary ---
Date of Service February 04, 2023 Admission HPI Per Admitting Provider Madison is a 72-year-old female with PMH of T2DM, mild MR, dyslipidemia, sleep apnea, HTN, insomnia, and depression. She presented for worsening SOB x2 days. She reports that she had a high sodium diet the week . SOB is at rest. It is worse when lying flat on her back. Patient normally uses CPAP at night; no other at home oxygen use. She has been having an ongoing productive cough this week with clear sputum production. She reports that she was feeling sick before , but reports that her granddaughter was also sick at . No recent hospitalizations or surgeries. She reports that she took metformin this morning, but no other medications. She manages her own medications at home. Patient was hypoxic at 88% on RA on arrival, and was placed on BiPAP after her CT scan. ED course: Lasix 20 mg IV Started on BiPAP ROS: Patient endorses SOB at rest, productive cough, sweating, and one episode of vomiting on Saturday 01/27 (which patient attributes to taking pills on an empty stomach) Patient denies fever, chills, dizziness, lightheadedness, SCHULZ, CP, pleuritic CP, abdominal pain, nausea, burning with urination, saddle anesthesia, and numbness/tingling/swelling in the legs. No PMHx of COPD, asthma, HF, DC, DVT/PE, cancer Principal Diagnosis Acute systolic congestive heart failure, acute hypoxic respiratory failure, transient PSVT Discharge Exam General-alert and oriented x3, no fevers, no chills HEENT-head atraumatic and normocephalic, pupils equal and reactive to light, extraocular muscles intact Neck-no lymphadenopathy or thyromegaly, trachea midline Chest-clear to auscultation percussion. No rales wheezing or rhonchi Cardiac-irregular rhythm with controlled rate, normal S1 and S2 (earlier today) Abdomen-normal bowel sounds, nontender, no hepatosplenomegaly Extremities-no cyanosis, clubbing, or edema Neuro-cranial nerves II through XII intact, motor and sensory function within normal limits, strength symmetrical, no focal deficits Psych-normal affect, normal mood Discharge Data Allergies Allergy/AdvReac Type Severity Reaction Status Date / Time latex Allergy Mild RASH Verified 02/03/23 11:17 dextromethorphan Allergy Unknown Unknown Verified 02/03/23 11:17 [From NyQuil] doxylamine [From NyQuil] Allergy Unknown Unknown Verified 02/03/23 11:17 pseudoephedrine [From NyQuil] Allergy Unknown Unknown Verified 02/03/23 11:17 bacitracin AdvReac Mild "change in Verified 02/03/23 11:17 skin color, itch" neomycin AdvReac Mild "change in Verified 02/03/23 11:17 skin color, itch" polymyxin B AdvReac Mild "change in Verified 02/03/23 11:17 skin color, itch" acetaminophen AdvReac Unknown COUGH/ANXIO Verified 02/03/23 11:17 US diphenhydramine AdvReac Unknown COUGH/ANXIO Verified 02/03/23 11:17 US ibuprofen AdvReac Unknown COUGH/ANXIO Verified 02/03/23 11:17 US naproxen AdvReac Unknown COUGH/ANXIO Verified 02/03/23 11:17 US crestor AdvReac myalgia Uncoded 12/29/22 18:22 Consultations 02/01/23 10:32 ED Decision to Admit Stat 02/02/23 07:57 Consult Cardiology Routine Procedures Performed Operation Date: 02/03/23 11:00 Actual Procedures p Cineradiography w/Routine Exam - Mervin Corbin MD p Cath, Left with Cors and Vent - Mervin Corbin MD Ordered Studies 02/01/23 08:57 CT angio chest PE protocol Stat 02/03/23 11:11 CL Cath Imgs for PACS use only Routine Hospital Course (1) Acute on chronic systolic CHF (congestive heart failure): Nearly resolved with intravenous Lasix diuresis. Chest x-ray today, February 04, reveals only pulmonary vascular congestion. She is on room air. She is now on Coreg, Entresto, Jardiance, and spironolactone. Cardiology consultation and recommendations appreciated. Telemetry. Cardiac catheterization completed on February 03, was negative for critical coronary stenoses. (2) SOB (shortness of breath): Due to CHF. She is now on room air. Supportive care. Chest CTA revealed no pulmonary embolus. BioFire negative. Procalcitonin WNL (3) Type 2 diabetes mellitus: Last A1c 6.4% on 10/09/2022. Metformin on hold while hospitalized. Will resume at discharge. Sliding scale insulin coverage as needed. ADA diet (4) Sleep apnea: Patient normally uses CPAP at night. Stable (5) Hypertension: Stable. Medications have been changed by cardiology. Will follow (6) Depression: Stable. Continue venlafaxine (7) GERD (gastroesophageal reflux disease): Currently on famotidine and Protonix. (8) Elevated troponin: Minimal. No evidence of acute coronary syndrome (9) Dyslipidemia: Patient is no longer taking her atorvastatin 20 mg p.o. daily. She reports that it has an awful taste and causes side effects, which she is unable to describe. Crestor allergy listed as "myalgia". Will hold statins for now (10) Hypomagnesemia: Corrected. Serial labs Plan Home today, February 04 Total Time Total Time Spent Total Time Spent (In Minutes): 45 minutes Discharge Plan Discharge Items Patient Disposition: Home - Self-Care Reason For Visit: FLU LIKE SYMPTOMS, SOB Discharge Diagnosis: Acute systolic congestive heart failure, acute hypoxic respiratory failure, transient PSVT Activity: Resume your previous activity Lifting: No more than 5 pounds Lifting Comment: No vigorous use of right wrist for 7 days Non-emergency contact: Primary Care Provider and Wad Compressor Operator Adjuster Call non-emergency contact if: you have any medication questions and your symptoms worsen Follow-up/Referrals: Vianey Thompson PA-C [Physician Surgical Assistant] - 02/11/23 10:30 am (Congestive Heart Failure Program Appointment Information Early follow up is essential to managing your heart failure. An appointment has been scheduled for you with the [facility] Heart Failure Program within 7 days of discharge. Anticipate this visit to be 30-60 minutes long. Please expect a director of veterans affairs phone call from one of our nurses approximately 48 hours from discharge. They will also be placing an order for lab work to be completed 1-2 days prior to your heart failure follow up appointment. Please be sure to have this done so we can go over the results when you come in. Office Location The cardiology office building is located in front of the hospital at [address] Bring the following with you to your follow-up doctor appointments: Please bring your daily weight log any discharge paperwork all of your medication bottles with you to this visit. ) Thal,Alisa A., MD [Primary Care Provider] - Diet: Carb Consistent or DM2 and Heart Healthy Addtl Attending Provider Instructions: Medications now include Lasix (furosemide), Coreg (carvedilol), Entresto (valsartan/sacubitril), Jardiance Pending Studies at Discharge: No Stand-Alone Forms: My [facility] [email or web address], Smoking Cessation Medications and DC Order Prescriptions: New carvedilol 3.125 mg Tablet 3.125 mg PO BIDM Qty: 60 0RF Jardiance 10 mg Tablet 10 mg PO DAILY Qty: 30 0RF Entresto 24-26 mg Tablet 1 tab PO BID Qty: 60 0RF furosemide [Lasix] 40 mg tablet 40 mg PO DAILY Qty: 30 0RF Continued (DME) blood sugar diagnostic [Accu-Chek Marleni Plus test strp] Strip See Rx Instructions .ROUTE .MEDSUPPLY Qty: 100 1RF Rx Instructions: As directed- test 1-2 times daily (DME) lancing device with lancets [Accu-Chek Soft Dev Lancets] Kit See Rx Instructions .ROUTE .MEDSUPPLY Qty: 100 0RF Rx Instructions: As directed- test 1-2 times daily venlafaxine 75 mg capsule,extended release 24hr 75 mg PO DAILY MDD 225mg Qty: 90 3RF bupropion HCl [Wellbutrin XL] 300 mg tablet extended release 24 hr 300 mg PO QAM 90 Days Qty: 90 2RF metformin 500 mg tablet 500 mg PO TIDWMEAL Qty: 270 3RF Rx Instructions: with meals zolpidem [Ambien] 10 mg tablet 10 mg PO QPM PRN (Reason: insomnia) Qty: 90 1RF mometasone 0.1 % cream 1 applic TOP DAILY Qty: 45 3RF potassium chloride 10 mEq tablet,ER particles/crystals 20 meq PO DAILY Qty: 180 3RF omeprazole 40 mg capsule,delayed release(DR/EC) 40 mg PO DAILY Qty: 90 3RF venlafaxine 150 mg capsule,extended release 24hr 150 mg PO DAILY Qty: 90 3RF benzonatate 100 mg capsule 100 mg PO TID PRN (Reason: cough) Qty: 30 5RF Sutab 1.479-0.188- 0.225 gram tablet See Rx Instructions PO .COMPLEX Qty: 24 0RF Rx Instructions: TAKE DIRECTED PER SPLIT DOSE INSTRUCTIONS BIN: [id number] PCN: CN GROUP: [id number] vitamin B complex [B Complex-Vitamin B12] tablet 1 tab PO DAILY desoximetasone 0.25 % ointment 1 appln TOP BID Qty: 60 3RF multivitamin Tablet 1 tab PO DAILY ferrous sulfate [Feosol] 325 mg (65 mg iron) tablet 325 mg PO DAILY ondansetron 4 mg tablet,disintegrating 4 mg PO Q6 PRN (Reason: nausea and vomiting) Qty: 14 0RF Discontinued hydrochlorothiazide 25 mg tablet 25 mg PO DAILY Qty: 90 3RF losartan 100 mg tablet 100 mg PO DAILY Qty: 90 3RF Discharge Orders: Discharge Order- CHF (Routine); Ordered 02/04/23 Ordered By: Bhavik Barragan/Other Patient Handouts: High Blood Sugar (Hyperglycemia), Managing Type 2 Diabetes Admission Data Admit Date/Time: 02/01/23 11:22 Attending Provider: Bhavik Quiles Admit Provider: Kuldeep Moran Primary Care Provider: Alisa Prabhakar Other Providers: Kuldeep Moran; Perez Nicholson Coding Level of Care Code 74524 INP/OBS DISCH >30 MIN Diagnoses Acute on chronic systolic CHF (congestive heart failure) I50.23 SOB (shortness of breath) R06.02 Type 2 diabetes mellitus E11.9 Sleep apnea G47.30 Hypertension I10 Depression F32.9 GERD (gastroesophageal reflux disease) K21.9 Elevated troponin R79.89 Dyslipidemia E78.5 Hypomagnesemia E83.42
--- NOTE | 2023-02-04 13:43 | Electrocardiogram Report ---
Test Reason : Blood Pressure : / mmHG Vent. Rate : 123 BPM Atrial Rate : 123 BPM P-R Int : 186 ms QRS Dur : 104 ms QT Int : 300 ms P-R-T Axes : 068 026 088 degrees QTc Int : 429 ms Poor data quality, interpretation may be adversely affected Sinus tachycardia with occasional Premature ventricular complexes Nonspecific T wave abnormality Abnormal ECG When compared with ECG of 01-FEB-2023 07:27, Premature ventricular complexes are now Present Nonspecific T wave abnormality now evident in Inferior leads Nonspecific T wave abnormality now evident in Lateral leads Confirmed by Mervin Corbin ([id number]) on 02/04/2023 1:42:41 PM Referred By: REFERRED SELF Confirmed By:Ryan Corbin
--- NOTE | 2023-02-04 16:08 | Cardiology Progress Note ---
Date of Service February 04, 2023 Assessment & Plan (1) Acute HFrEF (heart failure with reduced ejection fraction): Plan: Patient doing well. No complications associated with cardiac catheterization performed yesterday Stable for discharge Will continue carvedilol, Entresto and Jardiance Follow-up be arranged in the outpatient heart failure clinic. (2) Cardiomyopathy: (3) Elevated troponin: (4) SOB (shortness of breath): Plan: Presenting symptom, resolved. Admission and Anticipated Discharge Date Admission Date: February 01, 2023 Subjective This morning patient claimed he feeling well. No dizziness or lightheadedness. No sense of palpitation. No chest pain. Breathing normal. Review of Systems Review of Systems: Per HPI Physical Exam Physical Exam: She is alert and oriented x3. Mood affect appear normal. She answered all questions appropriately. HEENT: Sclerae are anicteric. Pupils are equal and reactive to light and accommodation. Extraocular movements were intact. Neuro: Cranial nerves intact Lungs: Lungs are clear to auscultation bilaterally. There are no rales wheezes or rhonchi. She has normal respiratory effort without use of accessory muscles. There is normal pulmonary excursion. Cardiac: The rhythm was regular. S1 and S2 were normal. There are no murmurs on examination. The PMI was not markedly displaced on palpation. Extremities: Good perfusion of the right hand with a palpable radial pulse There is no evidence cyanosis or clubbing. There was no evidence of significant peripheral edema bilaterally. Skin: There are no rashes noted on examination today. Results & Data Vital Signs (Past 12 Hours) Vital Signs Temp Pulse Resp BP BP Pulse Ox O2 Del Method 02/04/23 13:25 36.8 C 101 H 18 110/66 104/68 94 02/04/23 12:36 36.8 C 101 H 18 110/66 94 Room Air 02/04/23 08:23 36.6 C 96 H 20 108/64 92 Room Air Laboratory Results Abnormal Lab Results 02/03/23 02/03/23 02/04/23 16:24 20:13 05:25 WBC 8.96 RBC 4.47 Hgb 13.7 Hct 40.4 MCV 90.4 MCH 30.6 MCHC 33.9 RDW Std Deviation 48.1 H RDW Coeff of Lashae 14.6 H Plt Count 268 MPV 9.7 Immature Gran % (Auto) 0.2 Neut % (Auto) 52.3 Lymph % (Auto) 37.5 Marion % (Auto) 6.8 Eos % (Auto) 2.6 Baso % (Auto) 0.6 Neut # (Auto) 4.69 Lymph # (Auto) 3.36 Marion # (Auto) 0.61 H Eos # (Auto) 0.23 Baso # (Auto) 0.05 Immature Gran # (Auto) 0.02 Sodium 137 Potassium 4.0 Chloride 105 Carbon Dioxide 23 Anion Gap 9 BUN 25 H Creatinine 0.73 Est Cr Clr Drug Dosing 67.9 Est GFR ( Amer) 94.7 Est GFR (Non-Af Amer) 81.7 BUN/Creatinine Ratio 34.2 H Glucose 128 H POC Glucose 158 H 89 Calcium 8.7 02/04/23 02/04/23 08:07 12:02 WBC RBC Hgb Hct MCV MCH MCHC RDW Std Deviation RDW Coeff of Lashae Plt Count MPV Immature Gran % (Auto) Neut % (Auto) Lymph % (Auto) Marion % (Auto) Eos % (Auto) Baso % (Auto) Neut # (Auto) Lymph # (Auto) Marion # (Auto) Eos # (Auto) Baso # (Auto) Immature Gran # (Auto) Sodium Potassium Chloride Carbon Dioxide Anion Gap BUN Creatinine Est Cr Clr Drug Dosing Est GFR ( Amer) Est GFR (Non-Af Amer) BUN/Creatinine Ratio Glucose POC Glucose 156 H 116 H Calcium Diagnostic Findings Coronary angiography performed yesterday which revealed normal coronary arteries without significant coronary disease. LVEDP 12 PG Care Time/CCT Total # of Minutes Spent Total Time Spent with Patient: Total time spent is greater than 50% in coordination of care (as documented) at patient's floor/unit and/or counseling patient: Coding Level of Care Code 36966 SUB INP/OBS CARE 2/35MIN Diagnoses Acute HFrEF (heart failure with reduced ejection fraction) I50.21 Cardiomyopathy I42.9 Elevated troponin R79.89 SOB (shortness of breath) R06.02
== END 2023-02-04 13:52 | disposition home or self-care (01) | DRG 286 ==
LOC: ED 07:08 → 4W 11:22 → SUATTDRO 11:22 → 4W 12:02